=== PATIENT | female | born 1980 | race Two or more races ===

== ENCOUNTER 2020-11-02 11:13 | Emergency (ER) | payer OTHER, SELFPAY ==
[2020-11-02 11:38] VITALS: BP 122/57; PULSE 80; RESP 16; TEMP 36.8; O2SAT 99; BMI 39.6
[2020-11-02 12:20] LABS: Glucose Urine UA NEG (NEG); Leukocyte Esterase Urine NEG (NEG); Nitrite Urine NEG (NEG); PH 5.5 (5.0-8.0); Specific Gravity - Urine >= 1.030 (1.005-1.025); Urine Blood NEG (NEG); Urine Ketones NEG (NEG); Urine Protein NEG (NEG-TRACE)
[2020-11-02 12:22] LABS: MANUAL DIFF FLAG NO
[2020-11-02 12:24] LABS: Basophils Absolute Auto 0.1 X10*3/uL (0.0-0.2); Basophils Percent Auto 0.8 % (0-2); Eosinophils Absolute Auto 0.2 X10*3/uL (0.0-0.4); Eosinophils Percent Auto 2.9 % (0-4); Hematocrit 33.8 % (37-47); Hemoglobin 10.1 g/dl (12.0-16.0); Imm Gran Abs Auto 0.03 X10*3/uL (0.00-0.03); Imm Gran Pct Auto 0.5 % (0.0-0.4); Lymphocytes Absolute Auto 2.2 X10*3/uL (1.2-4.9); Lymphocytes Percent Auto 33.7 % (20-40); Mean Corpuscular HGB Conc 29.9 g/dl (31.0-35.0); Mean Corpuscular Hemoglobin 22.4 pg (27.0-33.0); Mean Corpuscular Volume 75.1 fL (80-98); Monocytes Absolute Auto 0.6 X10*3/uL (0.1-1.2); Monocytes Percent Auto 8.3 % (2-11); Neutrophils Absolute Auto 3.6 X10*3/uL (2.0-8.3); Neutrophils Percent Auto 53.8 % (45-73); Platelet Count 538 X10*3/uL (160-400); Red Cell Distribution Width 15.2 % (11.0-16.0); White Blood Count 6.6 X10*3/uL (4.8-10.8)
[2020-11-02 12:24] LABS: Appearance Urine HAZY; Color Urine YELLOW; UPreg QC Valid YES; Urine Pregnancy NEGATIVE (NEGATIVE)
[2020-11-02 12:42] LABS: Anion Gap 12 (12-20); Blood Urea Nitrogen 7 mg/dL (9-16); Carbon Dioxide 25 mmol/L (22-29); Chloride 105 mmol/L (96-108); Creatinine Clr Calc Pharmacy 105.1; Estimated Glomerular Filt Rate > 60; Glucose Random 87 mg/dL (60-115); Potassium 4.3 mmol/L (3.3-5.1); Sodium 138 mmol/L (135-145)
--- NOTE | 2020-11-02 13:01 | ED.GENADULT ---
HPI - General Adult General Chief complaint: General Medical Stated complaint: BLOOD IN STOOLS Time Seen by Provider: 11/02/20 12:59 Related Data Allergies Allergy/AdvReac Type Severity Reaction Status Date / Time No Known Allergies Allergy Verified 11/02/20 11:42 [No Known Allergies*] [facility]LY [facility] Past Medical History Medical History (Updated 11/02/20 @ 11:41 by Christine Meadows) Hemorrhoid Hernia Surgical History (Updated 11/02/20 @ 11:41 by Christine Meadows) H/O tubal ligation Social History Social History Advance Directives: No Advance Directives Information Provided: No Physical Exam Vital Signs: Vital Signs: Last Vital Signs Temp 98.2 F 11/02/20 11:38 Pulse 80 11/02/20 11:38 Resp 16 11/02/20 11:38 BP 122/57 L 11/02/20 11:38 Pulse Ox 99 11/02/20 11:38 Body Mass Index 39.6 Medical Decision Making Lab Data Result diagrams: 11/02/20 12:18 11/02/20 12:18 Labs: Lab Results 11/02/20 11/02/20 11/02/20 Range/Units 11:59 11:59 12:18 WBC 6.6 (4.8-10.8) X10*3/uL RBC 4.50 (4.20-5.50) X10*6/uL Hgb 10.1 L (12.0-16.0) g/dl Hct 33.8 L (37-47) % MCV 75.1 L (80-98) fL MCH 22.4 L (27.0-33.0) pg MCHC 29.9 L (31.0-35.0) g/dl RDW 15.2 (11.0-16.0) % Plt Count 538 H (160-400) X10*3/uL MPV 9.0 L (9.4-12.3) fL Immature Gran % (Auto) 0.5 H (0.0-0.4) % Neut % (Auto) 53.8 (45-73) % Lymph % (Auto) 33.7 (20-40) % [place] % (Auto) 8.3 (2-11) % Eos % (Auto) 2.9 (0-4) % Baso % (Auto) 0.8 (0-2) % Lymph # (Auto) 2.2 (1.2-4.9) X10*3/uL [place] # (Auto) 0.6 (0.1-1.2) X10*3/uL Eos # (Auto) 0.2 (0.0-0.4) X10*3/uL Baso # (Auto) 0.1 (0.0-0.2) X10*3/uL Abs Immat Gran (auto) 0.03 (0.00-0.03) X10*3/uL Absolute Neuts (auto) 3.6 (2.0-8.3) X10*3/uL Absolute Nucleated RBC 0.000 (0.0-0.012) X10*3/uL Nucleated RBC % (auto) 0.0 (0.0-0.2) /100WBC Hold Blue Top Sodium (135-145) mmol/L Potassium (3.3-5.1) mmol/L Chloride (96-108) mmol/L Carbon Dioxide (22-29) mmol/L Anion Gap (12-20) BUN (9-16) mg/dL Creatinine (0.5-1.4) mg/dL Estim Creat Clear Calc Estimated GFR Random Glucose (60-115) mg/dL Calcium (8.4-10.2) mg/dL Urine Color YELLOW Urine Appearance HAZY Urine pH 5.5 (5.0-8.0) Ur Specific [place] >= 1.030 H (1.005-1.025) Urine Protein NEG (NEG-TRACE) MG/DL Urine Glucose (UA) NEG (NEG) MG/DL Urine Ketones NEG (NEG) MG/DL Urine Blood NEG (NEG) Urine Nitrite NEG (NEG) Ur Leukocyte Esterase NEG (NEG) Urine Test NEGATIVE (NEGATIVE) 11/02/20 11/02/20 Range/Units 12:18 12:18 WBC (4.8-10.8) X10*3/uL RBC (4.20-5.50) X10*6/uL Hgb (12.0-16.0) g/dl Hct (37-47) % MCV (80-98) fL MCH (27.0-33.0) pg MCHC (31.0-35.0) g/dl RDW (11.0-16.0) % Plt Count (160-400) X10*3/uL MPV (9.4-12.3) fL Immature Gran % (Auto) (0.0-0.4) % Neut % (Auto) (45-73) % Lymph % (Auto) (20-40) % [place] % (Auto) (2-11) % Eos % (Auto) (0-4) % Baso % (Auto) (0-2) % Lymph # (Auto) (1.2-4.9) X10*3/uL [place] # (Auto) (0.1-1.2) X10*3/uL Eos # (Auto) (0.0-0.4) X10*3/uL Baso # (Auto) (0.0-0.2) X10*3/uL Abs Immat Gran (auto) (0.00-0.03) X10*3/uL Absolute Neuts (auto) (2.0-8.3) X10*3/uL Absolute Nucleated RBC (0.0-0.012) X10*3/uL Nucleated RBC % (auto) (0.0-0.2) /100WBC Hold Blue Top SEE NOTE Sodium 138 (135-145) mmol/L Potassium 4.3 (3.3-5.1) mmol/L Chloride 105 (96-108) mmol/L Carbon Dioxide 25 (22-29) mmol/L Anion Gap 12 (12-20) BUN 7 L (9-16) mg/dL Creatinine 0.69 (0.5-1.4) mg/dL Estim Creat Clear Calc 105.1 Estimated GFR > 60 Random Glucose 87 (60-115) mg/dL Calcium 9.0 (8.4-10.2) mg/dL Urine Color Urine Appearance Urine pH (5.0-8.0) Ur Specific [place] (1.005-1.025) Urine Protein (NEG-TRACE) MG/DL Urine Glucose (UA) (NEG) MG/DL Urine Ketones (NEG) MG/DL Urine Blood (NEG) Urine Nitrite (NEG) Ur Leukocyte Esterase (NEG) Urine Test (NEGATIVE)
--- NOTE | 2020-11-02 16:01 | PC.NURSE ---
x2 call now, no answer.
== END 2020-11-02 16:01 | disposition left against medical advice (07) ==
PROVIDERS: Emergency Provider Emergency Medicine
DX: K92.1 Melena (principal)
CPT/HCPCS: 36415; 80048; 81003; 81025; 85025; 99282; 99283

== ENCOUNTER 2021-05-26 19:13 | Emergency (ER) | payer OTHER, SELFPAY ==
[2021-05-26 20:27] VITALS: BP 113/82; PULSE 107; RESP 16; TEMP 36.9; O2SAT 98; BMI 38.5
[2021-05-26 20:53] LABS: IDNOW Serial# 9DD0AD1C; Strep A Nucleic Acid Negative (Negative)
[2021-05-26 20:59] LABS: COVID-19 Test Negative (Negative)
[2021-05-26 21:06] LABS: MANUAL DIFF FLAG NO
[2021-05-26 21:08] LABS: Appearance Urine HAZY; Color Urine YELLOW; Glucose Urine UA NEG (NEG); Leukocyte Esterase Urine NEG (NEG); Nitrite Urine NEG (NEG); Specific Gravity - Urine >= 1.030 (1.005-1.025); UACC Culture Trigger NO; Urine Blood TRACE (NEG); Urine Ketones 5 MG/DL (NEG); Urine Protein TRACE MG/DL (NEG-TRACE)
[2021-05-26 21:13] LABS: Basophils Percent Auto 0.4 % (0-2); Eosinophils Absolute Auto 0.1 X10*3/uL (0.0-0.4); Eosinophils Percent Auto 1.4 % (0-4); Hematocrit 34.9 % (37-47); Hemoglobin 10.5 g/dl (12.0-16.0); Imm Gran Abs Auto 0.02 X10*3/uL (0.00-0.03); Imm Gran Pct Auto 0.2 % (0.0-0.4); Lymphocytes Absolute Auto 1.8 X10*3/uL (1.2-4.9); Lymphocytes Percent Auto 18.8 % (20-40); Mean Corpuscular HGB Conc 30.1 g/dl (31.0-35.0); Mean Corpuscular Hemoglobin 21.4 pg (27.0-33.0); Mean Corpuscular Volume 71.1 fL (80-98); Mean Platelet Volume 9.2 fL (9.4-12.3); Monocytes Absolute Auto 0.7 X10*3/uL (0.1-1.2); Monocytes Percent Auto 7.5 % (2-11); Neutrophils Absolute Auto 6.9 X10*3/uL (2.0-8.3); Neutrophils Percent Auto 71.7 % (45-73); Platelet Count 658 X10*3/uL (160-400); Red Blood Count 4.91 X10*6/uL (4.20-5.50); Red Cell Distribution Width 16.7 % (11.0-16.0); White Blood Count 9.6 X10*3/uL (4.8-10.8)
[2021-05-26 21:18] LABS: Bacteria Urine 1+ /LPF; Squamous Epithelial Cell Urine 1+ /LPF
[2021-05-26 21:19] LABS: RBC Urine 0-2 /HPF (0); WBC Urine 0 /HPF (0-4)
[2021-05-26 21:22] LABS: Alanine Aminotransferase 11 U/L (0-31); Albumin Level 4.6 g/dL (3.5-5.0); Alkaline Phosphatase 74 U/L (39-117); Anion Gap 15 (12-20); Aspartate Amino Transferase 13 U/L (5-31); Bilirubin Direct 0.3 mg/dL (0.0-0.5); Bilirubin Total 1.1 mg/dL (0.0-1.0); Blood Urea Nitrogen 10 mg/dL (9-16); Calcium 10.3 mg/dL (8.4-10.2); Carbon Dioxide 25 mmol/L (22-29); Chloride 104 mmol/L (96-108); Creatinine Clr Calc Pharmacy 97.9; Estimated Glomerular Filt Rate > 60; Glucose Random 88 mg/dL (60-115); Lipase 20 U/L (8-78); Potassium 4.2 mmol/L (3.3-5.1); Sodium 140 mmol/L (135-145)
--- NOTE | 2021-05-26 21:30 | ED.NAVMDI ---
HPI - Nausea/Vomiting/Diarrhea General Chief complaint: Nausea/Vomiting/Diarrhea Stated complaint: vomitting, diarrhea Time Seen by Provider: 05/26/21 21:30 Source: patient Mode of arrival: ambulatory Limitations: no limitations History of Present Illness HPI Narrative: Patient with and nauseated vomiting with diarrhea since morning today vomited about 7-8 no fever no chills times and had diarrhea more than 10 times whenever she eats anything she throws up and had a bowel movement. With diffuse abdominal cramps. Patient grandson was also sick, patient also complaining of sore throat after vomiting Related Data Previous Rx's Medication Instructions Recorded ondansetron 4 mg disintegrating 4 mg PO Q6-8H PRN #7 tab 05/26/21 tablet Allergies Allergy/AdvReac Type Severity Reaction Status Date / Time No Known Allergies Allergy Verified 05/26/21 20:27 [No Known Allergies*] Review of Systems Review of Systems: Yes all other systems are reviewed and are negative PMFSH Past Medical History Medical History Hemorrhoid Hernia Surgical History H/O tubal ligation Social History Social History Alcohol intake: former Patient Tobacco Use Status: Never used Tobacco Use of substances other than those prescribed or required for medical reasons: No Advance Directives: No Advance Directives Information Provided: No Physical Exam Vital Signs: Vital Signs: Last Vital Signs Temp 97.9 F 05/26/21 23:30 Pulse 73 05/26/21 23:49 Resp 15 05/26/21 23:49 BP 113/68 05/26/21 23:49 Pulse Ox 98 05/26/21 23:49 Body Mass Index 38.5 Appearance: Alert. Oriented X3. No acute distress. Eyes: No pallor or icterus ENT: Pharynx normal. Oral Mucosa moist Neck: Normal inspection. Neck supple. CVS: Normal heart rate and rhythm. Pulses normal. Respiratory: No respiratory distress. Equal air entry bilateral, no wheezing/rales/rhonchi Abdomen: Soft and nontender. Bowel sounds are present, no mass palpable, no CVA tenderness Skin: Skin warm and dry. Normal skin color. Normal skin turgor. Extremities: No lower extremity edema. No calf tenderness Neuro: Oriented X 3. MDM - Nausea/Vomiting/Diarrhea Lab Data Result diagrams: 05/26/21 20:47 05/26/21 20:47 Labs: Lab Results 05/26/21 05/26/21 05/26/21 Range/Units 20:36 20:36 20:47 WBC 9.6 (4.8-10.8) X10*3/uL RBC 4.91 (4.20-5.50) X10*6/uL Hgb 10.5 L (12.0-16.0) g/dl Hct 34.9 L (37-47) % MCV 71.1 L (80-98) fL MCH 21.4 L (27.0-33.0) pg MCHC 30.1 L (31.0-35.0) g/dl RDW 16.7 H (11.0-16.0) % Plt Count 658 H (160-400) X10*3/uL MPV 9.2 L (9.4-12.3) fL Immature Gran % (Auto) 0.2 (0.0-0.4) % Neut % (Auto) 71.7 (45-73) % Lymph % (Auto) 18.8 L (20-40) % [place] % (Auto) 7.5 (2-11) % Eos % (Auto) 1.4 (0-4) % Baso % (Auto) 0.4 (0-2) % Lymph # (Auto) 1.8 (1.2-4.9) X10*3/uL [place] # (Auto) 0.7 (0.1-1.2) X10*3/uL Eos # (Auto) 0.1 (0.0-0.4) X10*3/uL Baso # (Auto) 0.0 (0.0-0.2) X10*3/uL Abs Immat Gran (auto) 0.02 (0.00-0.03) X10*3/uL Absolute Neuts (auto) 6.9 (2.0-8.3) X10*3/uL Absolute Nucleated RBC 0.000 (0.0-0.012) X10*3/uL Nucleated RBC % (auto) 0.0 (0.0-0.2) /100WBC Sodium (135-145) mmol/L Potassium (3.3-5.1) mmol/L Chloride (96-108) mmol/L Carbon Dioxide (22-29) mmol/L Anion Gap (12-20) BUN (9-16) mg/dL Creatinine (0.5-1.4) mg/dL Estim Creat Clear Calc Estimated GFR Random Glucose (60-115) mg/dL Calcium (8.4-10.2) mg/dL Total Bilirubin (0.0-1.0) mg/dL Direct Bilirubin (0.0-0.5) mg/dL AST (5-31) U/L ALT (0-31) U/L Alkaline Phosphatase (39-117) U/L Total Protein (6.5-8.0) g/dL Albumin (3.5-5.0) g/dL Lipase (8-78) U/L Urine Color Urine Appearance Urine pH (5.0-8.0) Ur Specific [place] (1.005-1.025) Urine Protein (NEG-TRACE) MG/DL Urine Glucose (UA) (NEG) MG/DL Urine Ketones (NEG) MG/DL Urine Blood (NEG) Urine Nitrite (NEG) Ur Leukocyte Esterase (NEG) Urine RBC (0) /HPF Urine WBC (0-4) /HPF Ur Squamous Epith Cells /LPF Urine Bacteria /LPF COVID-19 ([place]) Negative (Negative) COVID-19 Clin Com See Note S. pyogenes GrpA HAYLEY Negative (Negative) 05/26/21 05/26/21 Range/Units 20:47 20:50 WBC (4.8-10.8) X10*3/uL RBC (4.20-5.50) X10*6/uL Hgb (12.0-16.0) g/dl Hct (37-47) % MCV (80-98) fL MCH (27.0-33.0) pg MCHC (31.0-35.0) g/dl RDW (11.0-16.0) % Plt Count (160-400) X10*3/uL MPV (9.4-12.3) fL Immature Gran % (Auto) (0.0-0.4) % Neut % (Auto) (45-73) % Lymph % (Auto) (20-40) % [place] % (Auto) (2-11) % Eos % (Auto) (0-4) % Baso % (Auto) (0-2) % Lymph # (Auto) (1.2-4.9) X10*3/uL [place] # (Auto) (0.1-1.2) X10*3/uL Eos # (Auto) (0.0-0.4) X10*3/uL Baso # (Auto) (0.0-0.2) X10*3/uL Abs Immat Gran (auto) (0.00-0.03) X10*3/uL Absolute Neuts (auto) (2.0-8.3) X10*3/uL Absolute Nucleated RBC (0.0-0.012) X10*3/uL Nucleated RBC % (auto) (0.0-0.2) /100WBC Sodium 140 (135-145) mmol/L Potassium 4.2 (3.3-5.1) mmol/L Chloride 104 (96-108) mmol/L Carbon Dioxide 25 (22-29) mmol/L Anion Gap 15 (12-20) BUN 10 (9-16) mg/dL Creatinine 0.73 (0.5-1.4) mg/dL Estim Creat Clear Calc 97.9 Estimated GFR > 60 Random Glucose 88 (60-115) mg/dL Calcium 10.3 H D (8.4-10.2) mg/dL Total Bilirubin 1.1 H (0.0-1.0) mg/dL Direct Bilirubin 0.3 (0.0-0.5) mg/dL AST 13 (5-31) U/L ALT 11 (0-31) U/L Alkaline Phosphatase 74 (39-117) U/L Total Protein 8.0 (6.5-8.0) g/dL Albumin 4.6 (3.5-5.0) g/dL Lipase 20 (8-78) U/L Urine Color YELLOW Urine Appearance HAZY Urine pH 6.0 (5.0-8.0) Ur Specific [place] >= 1.030 H (1.005-1.025) Urine Protein TRACE (NEG-TRACE) MG/DL Urine Glucose (UA) NEG (NEG) MG/DL Urine Ketones 5 (NEG) MG/DL Urine Blood TRACE (NEG) Urine Nitrite NEG (NEG) Ur Leukocyte Esterase NEG (NEG) Urine RBC 0-2 (0) /HPF Urine WBC 0 (0-4) /HPF Ur Squamous Epith Cells 1+ /LPF Urine Bacteria 1+ /LPF COVID-19 ([place]) (Negative) COVID-19 Clin Com S. pyogenes GrpA HAYLEY (Negative) Discharge Plan Discharge Clinical Impression: Gastroenteritis Patient Disposition: Home, Self-Care Instructions: Gastroenteritis (ED) Additional Instructions: Drink plenty of fluids Take medication for nausea Take Imodium for severe diarrhea not more than 3 tablets a day Prescriptions: New ondansetron 4 mg tablet,disintegrating 4 mg PO Q6-8H PRN (Reason: nausea and vomiting) Qty: 7 RF: 0
[2021-05-26 21:31] VITALS: BP 110/70; PULSE 93; RESP 15; TEMP 36.7; O2SAT 98
[2021-05-26] MEDS: ondansetron HCL 4 MG/2 ML VIAL IVPUSH ×2 (22:19→23:49)
[2021-05-26] MEDS: 0.9 % Sodium Chloride 1,000 ML 999 ML IVCONT (22:19)
[2021-05-26] MEDS: Loperamide HCl 2 MG CAPSULE 4 MG PO (22:19)
[2021-05-26 23:30] VITALS: BP 113/68; PULSE 78; RESP 18; TEMP 36.6; O2SAT 98
[2021-05-26 23:49] VITALS: BP 113/68; PULSE 73; RESP 15; O2SAT 98
[2021-05-26] MEDS: Dicyclomine HCl 10 MG CAPSULE 20 MG PO (23:49)
== END 2021-05-27 00:30 | disposition home or self-care (01) ==
PROVIDERS: Emergency Provider Internal Medicine
DX: K52.9 Noninfective gastroenteritis and colitis, unspecified (principal); J02.9 Acute pharyngitis, unspecified; R11.2 Nausea with vomiting, unspecified; Z20.822 Contact with and (suspected) exposure to COVID-19
CPT/HCPCS: 36415; 80048; 80076; 81001; 83690; 85025; 87635; 87651; 96361; 96374; 96376; 99284; J2405

== ENCOUNTER 2021-10-11 07:01 | Emergency (ER) | payer OTHER, SELFPAY ==
--- NOTE | ~2021-10-11 | XR_ITS ---
EXAMINATION: XR CHEST CLINICAL INFORMATION: Chest pain and cough COMPARISON: 11/01/2018 TECHNIQUE: Frontal view of the chest was obtained. FINDINGS: Lung volumes are symmetric. No focal consolidation is seen. No evidence of pneumothorax, pleural effusion, or pulmonary edema. The cardiomediastinal contour is unremarkable. No acute osseous findings are seen. XR/XR chest 1V IMPRESSION: No acute cardiopulmonary findings.
[2021-10-11 07:09] VITALS: BP 123/76; PULSE 106; RESP 18; TEMP 37.4; O2SAT 97; BMI 37.8
[2021-10-11 07:16] VITALS: BP 114/75; PULSE 103; RESP 18; TEMP 37.6; O2SAT 97
--- NOTE | 2021-10-11 07:29 | ECG_ITS ---
Test Reason : CP Blood Pressure : / mmHG Vent. Rate : 096 BPM Atrial Rate : 096 BPM P-R Int : 174 ms QRS Dur : 072 ms QT Int : 358 ms P-R-T Axes : 021 004 000 degrees QTc Int : 452 ms Normal sinus rhythm Cannot rule out Anterior infarct , age undetermined Abnormal ECG When compared with ECG of 01-NOV-2018 20:41, No significant change was found Referred By: Shelli Rodriguez Electronically Signed By:IRMA VARGAS MD
--- NOTE | 2021-10-11 07:31 | ED_ITS ---
HPI - URI/Sore Throat General Chief Complaint: Upper Respiratory Symptoms Stated Complaint: chest pains/throat pain/body aches Time Seen by Provider: 10/11/21 07:29 Source: patient Mode of arrival: ambulatory Limitations: no limitations History of Present Illness HPI Narrative: 41-year-old female came in for evaluation of sore throat and chest pain. Patient's symptoms a starts since this morning with sore throat, coughing, chest pain, no other sick contacts, no recent travel, patient is not vaccinated for COVID. Chest pain is constant associated with coughing without radiation pain is not exertional. No recent travel, no lower extremity swelling or tenderness. Related Data Previous Rx's Medication Instructions Recorded ondansetron 4 mg disintegrating 4 mg PO Q6-8H PRN #7 tab 05/26/21 tablet Allergies Allergy/AdvReac Type Severity Reaction Status Date / Time No Known Allergies Allergy Verified 05/26/21 20:27 [No Known Allergies*] Review of Systems Review of Systems: All other systems are reviewed and are negative Constitutional: Reports as per HPI and Reports no additional constitutional complaints Eyes: Reports as per HPI and Reports no additional eye complaints Reports system reviewed and no additional complaints, except as documented Cardiovascular: Reports as per HPI and Reports no additional cardiovascular complaints Respiratory: Reports as per HPI and Reports no additional respiratory complaints Gastrointestinal: Reports as per HPI and Reports no additional gastrointestinal complaints Genitourinary: Reports no additional female genitourinary complaints Musculoskeletal: Reports no additional musculoskeletal complaints Skin/Breast: Reports system reviewed and no additional complaints, except as docu Psychiatric: Reports no additional psychiatric complaints Endocrine: Reports no additional endocrine complaints Hematologic/Lymphatic: Reports no additional hematologic/lymphatic complaints Allergic/Immunologic: Reports no additional allergic/immunologic complaints Reports system reviewed and no additional complaints, except as documented and Reports Abnormal speech present [facility] Past Medical History Medical History Hemorrhoid Hernia Surgical History H/O tubal ligation Social History Social History Alcohol intake: never Patient Tobacco Use Status: Never used Tobacco Use of substances other than those prescribed or required for medical reasons: No Advance Directives: No Advance Directives Information Provided: No Patient : No Physical Exam Vital Signs: Vital Signs: Last Vital Signs Temp 99.7 F 10/11/21 07:16 Pulse 103 H 10/11/21 07:16 Resp 18 10/11/21 07:16 BP 114/75 10/11/21 07:16 Pulse Ox 97 10/11/21 07:16 BMI result Body Mass Index 37.8 Vital signs have been reviewed as appeared to be correct. Blood pressure normal. Heart rate elevated. Respiration rate normal. Temperature normal. Oxygen saturation normal. Appearance: Alert. Oriented X3. No acute distress. Head: Normal external exam. Normocephalic. Atraumatic. No Ferraro signs noted. No raccoon eyes noted Eyes: PERRLA. EOMI. Conjunctiva and sclera normal. Eyelids normal. ENT: TM's Normal. Pharynx normal. Uvula midline. Moist mucous membranes. No trismus noted. No drooling noted. No muffled voice noted. Neck: Normal inspection. Neck supple. FROM. No adenopathy. Thyroid Normal. No meningeal signs. No neck mass noted. CVS: Normal heart rate and rhythm. Heart sound normal. No murmurs noted. Pulses normal throughout. Respiratory: No respiratory distress. Painless inspiration. Breath sounds normal. No wheezes/rales/rhonchi noted. Chest nontender. No accessory muscle usage noted or decreased air movement noted. Abdomen: Soft and nontender. Bowel sounds normal in all 4 quadrants. No distention noted. No organomegaly noted. No visible injury noted. Back: No CVA tenderness. Full range of motion noted. Skin: Skin warm and dry. Normal skin color. Normal skin turgor. No rashes/lesions/lacerations noted. Extremities: No lower extremity edema. Extremities exhibit normal range of motion. Extremities nontender. Neuro: Oriented X 3. Cranial nerve exam: II-XII are grossly intact No motor deficit. No sensory deficit. Reflexes normal. Course Course Course Narrative: Assessment and plan. 41-year-old female came in with chest pain and throat pain, patient tested negative for rapid strep and also negative for flu/RSV/COVID infection, patient has unremarkable EKG with troponin x2 negative. HEART score is 1 with very low risk for cardiac disease. Will discharge the patient after reassurance to follow-up with her PCP. MDM - URI/Sore Throat Lab Data Attestation: I reviewed the patient's lab results. Result diagrams: 10/11/21 07:54 10/11/21 07:54 Labs: Lab Results 10/11/21 10/11/21 10/11/21 Range/Units 07:54 07:54 07:54 WBC 12.3 H (4.8-10.8) X10*3/uL RBC 4.44 (4.20-5.50) X10*6/uL Hgb 9.5 L (12.0-16.0) g/dl Hct 32.4 L (37.0-47.0) % MCV 73.0 L (80.0-98.0) fL MCH 21.4 L (27.0-33.0) pg MCHC 29.3 L (31.0-35.0) g/dl RDW 20.4 H (11.0-16.0) % Plt Count 554 H (160-400) X10*3/uL MPV 9.6 (9.4-12.3) fL Immature Gran % (Auto) 0.4 (0.0-0.4) % Neut % (Auto) 79.3 H (45-73) % Lymph % (Auto) 11.6 L (20-40) % [place] % (Auto) 7.7 (2-11) % Eos % (Auto) 0.6 (0-4) % Baso % (Auto) 0.4 (0-2) % Lymph # (Auto) 1.4 (1.2-4.9) X10*3/uL [place] # (Auto) 1.0 (0.1-1.2) X10*3/uL Eos # (Auto) 0.1 (0.0-0.4) X10*3/uL Baso # (Auto) 0.1 (0.0-0.2) X10*3/uL Abs Immat Gran (auto) 0.05 H (0.00-0.03) X10*3/uL Absolute Neuts (auto) 9.7 H (2.0-8.3) x10*3/uL Absolute Nucleated RBC 0.000 (0.0-0.012) X10*3/uL Nucleated RBC % (auto) 0.0 (0.0-0.2) /100WBC Sodium 138 (135-145) mmol/L Potassium 4.1 (3.3-5.1) mmol/L Chloride 106 (96-108) mmol/L Carbon Dioxide 22 (22-29) mmol/L Anion Gap 14 (12-20) BUN 7 L (9-16) mg/dL Creatinine 0.68 (0.5-1.4) mg/dL Estim Creat Clear Calc 102.9 Estimated GFR > 60 Random Glucose 96 (60-115) mg/dL Calcium 9.2 D (8.4-10.2) mg/dL Total Bilirubin 0.6 (0.0-1.0) mg/dL Direct Bilirubin 0.2 (0.0-0.5) mg/dL AST 15 (5-31) U/L ALT 13 (0-31) U/L Alkaline Phosphatase 64 (39-117) U/L Troponin I High Sens < 3.5 (<3.5-17.0) ng/L Total Protein 6.6 (6.5-8.0) g/dL Albumin 3.8 (3.5-5.0) g/dL Lipase 24 (8-78) U/L Urine Color Urine Appearance Urine pH (5.0-8.0) Ur Specific [place] (1.005-1.025) Urine Protein (NEG-TRACE) MG/DL Urine Glucose (UA) (NEG) MG/DL Urine Ketones (NEG) MG/DL Urine Blood (NEG) Urine Nitrite (NEG) Ur Leukocyte Esterase (NEG) Urine Test (NEGATIVE) Influenza Type A (PCR) (Negative) Influenza Type B (PCR) (Negative) RSV RNA Qual (PCR) (Negative) SARS-CoV-2 RNA (RT-PCR) (Negative) S. pyogenes GrpA HAYLEY (Negative) 10/11/21 10/11/21 10/11/21 Range/Units 07:54 07:54 09:50 WBC (4.8-10.8) X10*3/uL RBC (4.20-5.50) X10*6/uL Hgb (12.0-16.0) g/dl Hct (37.0-47.0) % MCV (80.0-98.0) fL MCH (27.0-33.0) pg MCHC (31.0-35.0) g/dl RDW (11.0-16.0) % Plt Count (160-400) X10*3/uL MPV (9.4-12.3) fL Immature Gran % (Auto) (0.0-0.4) % Neut % (Auto) (45-73) % Lymph % (Auto) (20-40) % [place] % (Auto) (2-11) % Eos % (Auto) (0-4) % Baso % (Auto) (0-2) % Lymph # (Auto) (1.2-4.9) X10*3/uL [place] # (Auto) (0.1-1.2) X10*3/uL Eos # (Auto) (0.0-0.4) X10*3/uL Baso # (Auto) (0.0-0.2) X10*3/uL Abs Immat Gran (auto) (0.00-0.03) X10*3/uL Absolute Neuts (auto) (2.0-8.3) x10*3/uL Absolute Nucleated RBC (0.0-0.012) X10*3/uL Nucleated RBC % (auto) (0.0-0.2) /100WBC Sodium (135-145) mmol/L Potassium (3.3-5.1) mmol/L Chloride (96-108) mmol/L Carbon Dioxide (22-29) mmol/L Anion Gap (12-20) BUN (9-16) mg/dL Creatinine (0.5-1.4) mg/dL Estim Creat Clear Calc Estimated GFR Random Glucose (60-115) mg/dL Calcium (8.4-10.2) mg/dL Total Bilirubin (0.0-1.0) mg/dL Direct Bilirubin (0.0-0.5) mg/dL AST (5-31) U/L ALT (0-31) U/L Alkaline Phosphatase (39-117) U/L Troponin I High Sens < 3.5 (<3.5-17.0) ng/L Total Protein (6.5-8.0) g/dL Albumin (3.5-5.0) g/dL Lipase (8-78) U/L Urine Color Urine Appearance Urine pH (5.0-8.0) Ur Specific [place] (1.005-1.025) Urine Protein (NEG-TRACE) MG/DL Urine Glucose (UA) (NEG) MG/DL Urine Ketones (NEG) MG/DL Urine Blood (NEG) Urine Nitrite (NEG) Ur Leukocyte Esterase (NEG) Urine Test (NEGATIVE) Influenza Type A (PCR) NEGATIVE (Negative) Influenza Type B (PCR) NEGATIVE (Negative) RSV RNA Qual (PCR) NEGATIVE (Negative) SARS-CoV-2 RNA (RT-PCR) NEGATIVE (Negative) S. pyogenes GrpA HAYLEY Negative (Negative) 10/11/21 10/11/21 Range/Units 09:52 09:52 WBC (4.8-10.8) X10*3/uL RBC (4.20-5.50) X10*6/uL Hgb (12.0-16.0) g/dl Hct (37.0-47.0) % MCV (80.0-98.0) fL MCH (27.0-33.0) pg MCHC (31.0-35.0) g/dl RDW (11.0-16.0) % Plt Count (160-400) X10*3/uL MPV (9.4-12.3) fL Immature Gran % (Auto) (0.0-0.4) % Neut % (Auto) (45-73) % Lymph % (Auto) (20-40) % [place] % (Auto) (2-11) % Eos % (Auto) (0-4) % Baso % (Auto) (0-2) % Lymph # (Auto) (1.2-4.9) X10*3/uL [place] # (Auto) (0.1-1.2) X10*3/uL Eos # (Auto) (0.0-0.4) X10*3/uL Baso # (Auto) (0.0-0.2) X10*3/uL Abs Immat Gran (auto) (0.00-0.03) X10*3/uL Absolute Neuts (auto) (2.0-8.3) x10*3/uL Absolute Nucleated RBC (0.0-0.012) X10*3/uL Nucleated RBC % (auto) (0.0-0.2) /100WBC Sodium (135-145) mmol/L Potassium (3.3-5.1) mmol/L Chloride (96-108) mmol/L Carbon Dioxide (22-29) mmol/L Anion Gap (12-20) BUN (9-16) mg/dL Creatinine (0.5-1.4) mg/dL Estim Creat Clear Calc Estimated GFR Random Glucose (60-115) mg/dL Calcium (8.4-10.2) mg/dL Total Bilirubin (0.0-1.0) mg/dL Direct Bilirubin (0.0-0.5) mg/dL AST (5-31) U/L ALT (0-31) U/L Alkaline Phosphatase (39-117) U/L Troponin I High Sens (<3.5-17.0) ng/L Total Protein (6.5-8.0) g/dL Albumin (3.5-5.0) g/dL Lipase (8-78) U/L Urine Color YELLOW Urine Appearance CLEAR Urine pH 6.0 (5.0-8.0) Ur Specific [place] >= 1.030 H (1.005-1.025) Urine Protein NEG (NEG-TRACE) MG/DL Urine Glucose (UA) NEG (NEG) MG/DL Urine Ketones NEG (NEG) MG/DL Urine Blood NEG (NEG) Urine Nitrite NEG (NEG) Ur Leukocyte Esterase NEG (NEG) Urine Test NEGATIVE (NEGATIVE) Influenza Type A (PCR) (Negative) Influenza Type B (PCR) (Negative) RSV RNA Qual (PCR) (Negative) SARS-CoV-2 RNA (RT-PCR) (Negative) S. pyogenes GrpA HAYLEY (Negative) Imaging Data Chest x-ray: Attestation: I personally reviewed and interpreted this imaging study as follows: Radiologist's impression: No acute cardiopulmonary findings ECG Data Attestation: I personally reviewed and interpreted this ECG as follows: Interpretation: Normal sinus rhythm at 96 beats per minute, normal axis deviation, normal intervals, nonspecific T-wave flattening and T-wave inversion. Discharge Plan Discharge Clinical Impression: Upper respiratory infection Patient Disposition: Home, Self-Care Instructions: Viral Syndrome (ED) Prescriptions: No Action ondansetron 4 mg tablet,disintegrating 4 mg PO Q6-8H PRN (Reason: nausea and vomiting) Qty: 7 0RF Referrals: Magdalena Padgett MD [Primary Care Provider] - 2 days
[2021-10-11 08:00] LABS: MANUAL DIFF FLAG NO
[2021-10-11 08:13] LABS: Strep A Nucleic Acid Negative (Negative)
[2021-10-11 08:20] LABS: Troponin-I High Sensitivity < 3.5 ng/L (<3.5-17.0)
[2021-10-11 08:24] LABS: Alanine Aminotransferase 13 U/L (0-31); Albumin Level 3.8 g/dL (3.5-5.0); Alkaline Phosphatase 64 U/L (39-117); Anion Gap 14 (12-20); Aspartate Amino Transferase 15 U/L (5-31); Bilirubin Direct 0.2 mg/dL (0.0-0.5); Bilirubin Total 0.6 mg/dL (0.0-1.0); Blood Urea Nitrogen 7 mg/dL (9-16); Calcium 9.2 mg/dL (8.4-10.2); Carbon Dioxide 22 mmol/L (22-29); Chloride 106 mmol/L (96-108); Creatinine Clr Calc Pharmacy 102.9; Estimated Glomerular Filt Rate > 60; Glucose Random 96 mg/dL (60-115); Lipase 24 U/L (8-78); Potassium 4.1 mmol/L (3.3-5.1); Sodium 138 mmol/L (135-145); Total Protein 6.6 g/dL (6.5-8.0)
[2021-10-11 08:45] LABS: Influenza A PCR NEGATIVE (Negative); Influenza B PCR NEGATIVE (Negative); Resp Syncy Virus RNA Qual PCR NEGATIVE (Negative); SARS COV2 PCR INHOUSE NEGATIVE (Negative)
[2021-10-11 08:57] LABS: Basophils Absolute Auto 0.1 X10*3/uL (0.0-0.2); Basophils Percent Auto 0.4 % (0-2); Eosinophils Absolute Auto 0.1 X10*3/uL (0.0-0.4); Eosinophils Percent Auto 0.6 % (0-4); Hematocrit 32.4 % (37.0-47.0); Hemoglobin 9.5 g/dl (12.0-16.0); Imm Gran Abs Auto 0.05 X10*3/uL (0.00-0.03); Imm Gran Pct Auto 0.4 % (0.0-0.4); Lymphocytes Absolute Auto 1.4 X10*3/uL (1.2-4.9); Lymphocytes Percent Auto 11.6 % (20-40); Mean Corpuscular HGB Conc 29.3 g/dl (31.0-35.0); Mean Corpuscular Hemoglobin 21.4 pg (27.0-33.0); Mean Platelet Volume 9.6 fL (9.4-12.3); Monocytes Percent Auto 7.7 % (2-11); Neutrophils Absolute Auto 9.7 x10*3/uL (2.0-8.3); Neutrophils Percent Auto 79.3 % (45-73); Platelet Count 554 X10*3/uL (160-400); Red Blood Count 4.44 X10*6/uL (4.20-5.50); Red Cell Distribution Width 20.4 % (11.0-16.0); White Blood Count 12.3 X10*3/uL (4.8-10.8)
[2021-10-11 10:16] LABS: Troponin-I High Sensitivity < 3.5 ng/L (<3.5-17.0)
[2021-10-11 10:27] LABS: Appearance Urine CLEAR; Color Urine YELLOW; Glucose Urine UA NEG (NEG); Leukocyte Esterase Urine NEG (NEG); Nitrite Urine NEG (NEG); Specific Gravity - Urine >= 1.030 (1.005-1.025); Urine Blood NEG (NEG); Urine Ketones NEG (NEG); Urine Protein NEG (NEG-TRACE)
[2021-10-11 10:28] LABS: UPreg QC Valid YES; Urine Pregnancy NEGATIVE (NEGATIVE)
== END 2021-10-11 11:14 | disposition home or self-care (01) ==
PROVIDERS: Emergency Provider Emergency Medicine; PCP Internal Medicine
DX: J06.9 Acute upper respiratory infection, unspecified (principal); R07.89 Other chest pain; M79.10 Myalgia, unspecified site; R07.0 Pain in throat; Z20.822 Contact with and (suspected) exposure to COVID-19; Z79.899 Other long term (current) drug therapy
CPT/HCPCS: 0241U; 36415; 71045; 80048; 80076; 81003; 81025; 83690; 84484; 85025; 87651; 93005; 99285

== ENCOUNTER 2022-07-13 17:20 | Emergency (ER) | payer OTHER, SELFPAY ==
--- NOTE | ~2022-07-13 | XR_ITS ---
EXAMINATION: XR CHEST CLINICAL INFORMATION: Shortness of breath. Cough. COMPARISON: Chest x-ray 10/11/2021 TECHNIQUE: 2 views of the chest were obtained. FINDINGS: No significant abnormality is noted involving the heart, lungs, mediastinum, bony thorax or soft tissues. XR/XR chest 2V IMPRESSION: Unremarkable examination.
[2022-07-13 18:35] VITALS: BP 111/71; PULSE 87; RESP 18; TEMP 36.8; O2SAT 97; BMI 35.9
--- NOTE | 2022-07-13 18:35 | ED.URI ---
HPI - URI/Sore Throat General Chief Complaint: Upper Respiratory Symptoms <URI Torres - Last Filed: 07/13/22 18:37> Stated Complaint: Cough <URI Torres - Last Filed: 07/13/22 18:37> Time Seen by Provider: 07/13/22 20:15 <URI Torres - Last Filed: 07/13/22 18:37> Source: patient <Shelli Rodriguez MD - Last Filed: 07/13/22 20:57> Mode of arrival: ambulatory <Shelli Rodriguez MD - Last Filed: 07/13/22 20:57> Limitations: no limitations <Shelli Rodriguez MD - Last Filed: 07/13/22 20:57> History of Present Illness HPI Narrative: 41-year-old female came in for evaluation of upper respiratory symptoms patient been having productive cough with clear sputum, runny nose, congestion, body ache, boyfriend who live with the patient was sick with similar symptoms. 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 <Shelli Rodriguez MD - Last Filed: 07/13/22 20:57> Related Data Home Medications: Previous Rx's Medication Instructions Recorded ondansetron 4 mg disintegrating 4 mg PO Q6-8H PRN nausea and 05/26/21 tablet vomiting #7 tabs albuterol sulfate 90 mcg/actuation 1 inh inhalation QID PRN shortness 07/13/22 aerosol inhaler of breath or wheezing #8.5 grams azithromycin 250 mg tablet See Rx Instructions PO .COMPLEX #6 07/13/22 (Zithromax Z-Samy) tabs prednisone 20 mg tablet 20 mg PO BID #10 tabs 07/13/22 <URI Torres - Last Filed: 07/13/22 18:37> Allergies/Adverse Reactions: Allergies Allergy/AdvReac Type Severity Reaction Status Date / Time No Known Allergies Allergy Verified 05/26/21 20:27 [No Known Allergies*] <URI Torres - Last Filed: 07/13/22 18:37> Review of Systems Review of Systems: All other systems are reviewed and are negative Constitutional: Reports as per HPI and Reports no additional constitutional complaints Eyes: Reports as per HPI and Reports no additional eye complaints Reports system reviewed and no additional complaints, except as documented Cardiovascular: Reports as per HPI and Reports no additional cardiovascular complaints Respiratory: Reports as per HPI and Reports no additional respiratory complaints Gastrointestinal: Reports as per HPI and Reports no additional gastrointestinal complaints Genitourinary: Reports no additional female genitourinary complaints Musculoskeletal: Reports no additional musculoskeletal complaints Skin/Breast: Reports system reviewed and no additional complaints, except as docu Psychiatric: Reports no additional psychiatric complaints Endocrine: Reports no additional endocrine complaints Hematologic/Lymphatic: Reports no additional hematologic/lymphatic complaints Allergic/Immunologic: Reports no additional allergic/immunologic complaints Reports system reviewed and no additional complaints, except as documented and Reports Abnormal speech present <Shelli Rodriguez MD - Last Filed: 07/13/22 20:57> PMFSH Past Medical History Medical History: Medical History Hemorrhoid Hernia <URI Torres - Last Filed: 07/13/22 18:37> Surgical History: Surgical History H/O tubal ligation <URI Torres - Last Filed: 07/13/22 18:37> Social History Social History: Social History Alcohol intake: never Patient Tobacco Use Status: Never used Tobacco Advance Directives: No Advance Directives Information Provided: No <URI Torres - Last Filed: 07/13/22 18:37> Physical Exam Vital Signs: Vital Signs: Last Vital Signs Temp 98.3 F 07/13/22 18:35 Pulse 87 07/13/22 18:35 Resp 18 07/13/22 18:35 BP 111/71 07/13/22 18:35 Pulse Ox 97 07/13/22 18:35 O2 Del Method 07/13/22 18:35 BMI result Body Mass Index 35.9 <URI Torres - Last Filed: 07/13/22 18:37> Vital Signs: Last Vital Signs Temp 98.3 F 07/13/22 18:35 Pulse 87 07/13/22 18:35 Resp 18 07/13/22 18:35 BP 111/71 07/13/22 18:35 Pulse Ox 97 12/13/22 18:35 O2 Del Method 07/13/22 18:35 BMI result Body Mass Index 35.9 Vital signs have been reviewed as appeared to be correct. Blood pressure normal. Heart rate normal. Respiration rate normal. Temperature normal. Oxygen saturation normal. <Shelli Rodriguez MD - Last Filed: 07/13/22 20:57> Appearance: Alert. Oriented X3. No acute distress. Head: Normal external exam. Normocephalic. Atraumatic. No Ferraro signs noted. No raccoon eyes noted Eyes: PERRLA. EOMI. Conjunctiva and sclera normal. Eyelids normal. ENT: TM's Normal. Pharynx normal. Uvula midline. Moist mucous membranes. No trismus noted. No drooling noted. No muffled voice noted. Neck: Normal inspection. Neck supple. FROM. No adenopathy. Thyroid Normal. No meningeal signs. No neck mass noted. CVS: Normal heart rate and rhythm. Heart sound normal. No murmurs noted. Pulses normal throughout. Respiratory: No respiratory distress. Painless inspiration. Breath sounds normal. Bilateral mild expiratory wheezing with prolonged expiration. Chest nontender. No accessory muscle usage noted or decreased air movement noted. Abdomen: Soft and nontender. Bowel sounds normal in all 4 quadrants. No distention noted. No organomegaly noted. No visible injury noted. Back: No CVA tenderness. Full range of motion noted. Skin: Skin warm and dry. Normal skin color. Normal skin turgor. No rashes/lesions/lacerations noted. Extremities: No lower extremity edema. Extremities exhibit normal range of motion. Extremities nontender. Neuro: Oriented X 3. Cranial nerve exam: II-XII are grossly intact No motor deficit. No sensory deficit. Reflexes normal. <Shelli Rodriguez MD - Last Filed: 07/13/22 20:57> Course Course Course Narrative: 18:35pm - 41yoF presenting to the ER with complaints of a sore throat and a productive cough with white-colored sputum and posttussive emesis since last night worse today. Significant other has similar symptoms. No other sick contacts. No recent travel. Denies any other symptoms complaints or concerns. Plan: Will obtain chest x-ray, strep, COVID/RSV/flu swab. Patient is stable vital signs are stable. She will be sent back to the waiting room for further evaluation treatment [facility] care. <URI Torres - Last Filed: 07/13/22 18:37> Medical Decision Making Differential Diagnosis Differential Diagnoses: The differential diagnosis associated with the presentation includes (Pneumonia/influenza/COVID 19 infection/RSV/strep pharyngitis) <Shelli Rodriguez MD - Last Filed: 07/13/22 20:57> Lab Data MDM Lab Attestation statement: I reviewed the patient's lab results. <Shelli Rodriguez MD - Last Filed: 07/13/22 20:57> Labs: Lab Results 07/13/22 07/13/22 Range/Units 18:38 18:38 Influenza Type A (PCR) NEGATIVE (Negative) Influenza Type B (PCR) NEGATIVE (Negative) RSV RNA Qual (PCR) NEGATIVE (Negative) SARS-CoV-2 RNA (RT-PCR) NEGATIVE (Negative) S. pyogenes GrpA HAYLEY Negative (Negative) <URI Torres - Last Filed: 07/13/22 18:37> Lab Results 07/13/22 07/13/22 Range/Units 18:38 18:38 Influenza Type A (PCR) NEGATIVE (Negative) Influenza Type B (PCR) NEGATIVE (Negative) RSV RNA Qual (PCR) NEGATIVE (Negative) SARS-CoV-2 RNA (RT-PCR) NEGATIVE (Negative) S. pyogenes GrpA HAYLEY Negative (Negative) <Shelli Rodriguez MD - Last Filed: 07/13/22 20:57> Independent Interpretation I performed an independent interpretation of an: Plain X-Ray (Chest: No acute intrathoracic pathology.) <Shelli Rodriguez MD - Last Filed: 07/13/22 20:57> Radiology Impression Discussion of test interpretation with radiology: I have reviewed the radiologist's reading. <Shelli Rodriguez MD - Last Filed: 07/13/22 20:57> Discharge Plan Discharge Clinical Impression: Bronchitis <URI Torres - Last Filed: 07/13/22 18:37> Patient Disposition: Home, Self-Care <URI Torres - Last Filed: 07/13/22 18:37> Instructions: Acute Bronchitis (ED) <URI Torres - Last Filed: 07/13/22 18:37> Prescriptions: New prednisone 20 mg tablet 20 mg PO BID Qty: 10 0RF azithromycin [Zithromax Z-Samy] 250 mg tablet See Rx Instructions .ROUTE .COMPLEX Qty: 6 0RF Rx Instructions: For 250 mg dose pack: take 500 mg today (day 1), then 250 mg for 4 days (days 2-5) albuterol sulfate 90 mcg/actuation HFA aerosol inhaler 1 inh inhalation QID PRN (Reason: shortness of breath or wheezing) Qty: 8.5 0RF No Action ondansetron 4 mg tablet,disintegrating 4 mg PO Q6-8H PRN (Reason: nausea and vomiting) Qty: 7 0RF <URI Torres - Last Filed: 07/13/22 18:37> Referrals: Magdalena Padgett MD [Primary Care Provider] - <URI Torres - Last Filed: 07/13/22 18:37> Stand Alone Forms: Work/School Release <URI Torres - Last Filed: 07/13/22 18:37>
[2022-07-13 18:58] LABS: Strep A Nucleic Acid Negative (Negative)
[2022-07-13 19:23] LABS: Influenza A PCR NEGATIVE (Negative); Influenza B PCR NEGATIVE (Negative); Resp Syncy Virus RNA Qual PCR NEGATIVE (Negative); SARS COV2 PCR INHOUSE NEGATIVE (Negative)
== END 2022-07-13 21:02 | disposition home or self-care (01) ==
PROVIDERS: Physician Assistant Medical; Emergency Provider Emergency Medicine; PCP Internal Medicine
DX: J40 Bronchitis, not specified as acute or chronic (principal); R05.9 Cough, unspecified; M79.10 Myalgia, unspecified site; Z20.822 Contact with and (suspected) exposure to COVID-19; Z79.899 Other long term (current) drug therapy
CPT/HCPCS: 0241U; 36415; 71046; 87651; 99282; 99283

== ENCOUNTER 2022-11-02 19:36 | Emergency (ER) | payer OTHER, SELFPAY ==
--- NOTE | ~2022-11-02 | XR_ITS ---
EXAMINATION: XR CHEST CLINICAL INFORMATION: Shortness of breath COMPARISON: 07/13/2022 TECHNIQUE: Frontal view of the chest was obtained. FINDINGS: No significant abnormality is noted involving the heart, lungs, mediastinum, bony thorax or soft tissues. XR/XR chest 1V IMPRESSION: Unremarkable examination.
[2022-11-02 20:26] VITALS: BP 121/72; PULSE 92; RESP 18; TEMP 36.6; O2SAT 100; BMI 34.3
--- NOTE | 2022-11-02 20:26 | ECG_ITS ---
Test Reason : CHEST PAIN /SOB Blood Pressure : / mmHG Vent. Rate : 100 BPM Atrial Rate : 100 BPM P-R Int : 150 ms QRS Dur : 072 ms QT Int : 338 ms P-R-T Axes : 060 052 035 degrees QTc Int : 436 ms Normal sinus rhythm Normal ECG When compared with ECG of 11-OCT-2021 07:41, Nonspecific T wave abnormality has replaced inverted T waves in Inferior leads Referred By: Meena Ferreira Electronically Signed By:Jerry Pat
--- NOTE | 2022-11-02 20:27 | ED_ITS ---
HPI - General Adult General Chief complaint: Chest Pain <URI Sadler - Last Filed: 11/02/22 20:28> Stated complaint: SOB/Back pain <URI Sadler - Last Filed: 11/02/22 20:28> Time Seen by Provider: 11/02/22 23:53 <URI Sadler - Last Filed: 11/02/22 20:28> Source: patient <Chastity Roberts MD - Last Filed: 11/03/22 00:57> Mode of arrival: ambulatory <Chastity Roberts MD - Last Filed: 11/03/22 00:57> History of Present Illness HPI narrative: 42-year-old female who presents with primarily shortness of breath and chest discomfort that she states is traveling through her right ribs, shortness of breath started today she denies any recent cough, fevers, chills, GI or symptoms. Patient reports she has back pain with deep inspirations yesterday. <Chastity Roberts MD - Last Filed: 11/03/22 00:57> Related Data Home medications: Previous Rx's Medication Instructions Recorded ondansetron 4 mg disintegrating 4 mg PO Q6-8H PRN nausea and 05/26/21 tablet vomiting #7 tabs albuterol sulfate 90 mcg/actuation 1 inh inhalation QID PRN shortness 07/13/22 aerosol inhaler of breath or wheezing #8.5 grams azithromycin 250 mg tablet See Rx Instructions PO .COMPLEX #6 07/13/22 (Zithromax Z-Samy) tabs prednisone 20 mg tablet 20 mg PO BID #10 tabs 07/13/22 prednisone 50 mg tablet 50 mg PO DAILY 4 days #4 tabs 11/03/22 <URI Sadler - Last Filed: 11/02/22 20:28> Allergies/adverse reactions: Allergies Allergy/AdvReac Type Severity Reaction Status Date / Time No Known Allergies Allergy Verified 11/02/22 20:28 [No Known Allergies*] <URI Sadler - Last Filed: 11/02/22 20:28> Review of Systems Review of Systems: Pertinent positives and negatives as stated in HPI <Chastity Roberts MD - Last Filed: 11/03/22 00:57> PMFSH Past Medical History Source: nursing notes reviewed <Chastity Roberts MD - Last Filed: 11/03/22 00:57> Medical History: Medical History Hemorrhoid Hernia <URI Sadler - Last Filed: 11/02/22 20:28> Surgical History: Surgical History H/O tubal ligation <URI Sadler - Last Filed: 11/02/22 20:28> Social History Social History: Social History Alcohol intake: never Patient Tobacco Use Status: Never used Tobacco Advance Directives: No Advance Directives Information Provided: Yes <URI Sadler - Last Filed: 11/02/22 20:28> Physical Exam ED Vital Signs: Vital Signs - 24 hr 11/02/22 20:26 11/02/22 23:57 11/03/22 00:20 Temperature 98 F 97.9 F Pulse Rate 92 88 81 Respiratory Rate 18 14 14 Blood Pressure 121/72 121/59 L Pulse Oximetry 100 98 99 Oxygen Delivery Method Aerosol Mask Room Air Room Air BMI result Body Mass Index 34.3 <URI Sadler - Last Filed: 11/02/22 20:28> Vital Signs - 24 hr 11/02/22 20:26 11/02/22 23:57 11/03/22 00:20 Temperature 98 F 97.9 F Pulse Rate 92 88 81 Respiratory Rate 18 14 14 Blood Pressure 121/72 121/59 L Pulse Oximetry 100 98 99 Oxygen Delivery Method Aerosol Mask Room Air Room Air BMI result Body Mass Index 34.3 VITAL SIGNS: Reviewed. GENERAL: Well developed, well nourished, in no acute distress. HEAD: Normocephalic/atraumatic EYES: PERRLA, EOMI EARS: Ext canals without abnormality, TMs non-bulging and non-erythematous NOSE: Nares patent bilateral OROPHARYNX: no oral lesions noted, posterior pharynx clear and non-erythematous without noted tonsillar enlargement/erythema/exudates NECK: Supple, no adenopathy LUNGS: Normal breath sounds, no expiratory wheeze, no tachypnea. SpO2<99> CARDIOVASCULAR: Regular rate and rhythm without noted murmurs ABDOMEN: Soft, non-tender, non-distended with bowel sounds. MUSCULOSKELETAL: No tenderness, deformities, or effusions noted on gross inspection. EXTREMITIES: No cyanosis, clubbing or edema. SKIN: Inspection of the skin reveals no rashes NEUROLOGIC: Alert and oriented x 4. Strength and sensation to light touch were grossly intact x 4. <Chastity Roberts MD - Last Filed: 11/03/22 00:57> Course Course Course Narrative: This is an RME: Additional HPI, ROS, PE not included below will be deferred to primary provider. 42-year-old female presents with back pain, shortness of breath, pleuritic chest pain, patient reports stabbing pain in her back when she takes a deep breath, also reporting substernal chest pressure worse with deep breathing. Shortness of breath is worse with ambulation. Patient is a former smoker she stopped 9 years ago, patient is not on control or hormones, no history of cancer or history of DVT for PE. On exam patient 100% on room air, heart rate 96, patient is well-appearing. Plan at this time labs, imaging, viral test. Although patient is PERC negative her story is concerning therefore will order D-dimer. <URI Sadler - Last Filed: 11/02/22 20:28> Medical Decision Making Medical Decision Making MDM Narrative: 42-year-old female with history and clinical presentation consistent with being a previous smoker on developing shortness of breath, she is PERC negative, no evidence to suggest infection and my review of all investigations my interpretation is that this is likely chronic lung disease, patient was treated with combination analgesics and started on a short course of steroids. She is otherwise discharged home in stable condition without evidence of tachypnea, tachycardia, and patient is afebrile. <Chastity Roberts MD - Last Filed: 11/03/22 00:57> Differential Diagnosis Please see the discussion above <Chastity Roberts MD - Last Filed: 11/03/22 00:57> Lab Data Please see the discussion above <Chastity Roberts MD - Last Filed: 11/03/22 00:57> Result Diagrams: 11/02/22 20:56 11/02/22 20:56 <URI Sadler - Last Filed: 11/02/22 20:28> Labs: Lab Results 11/02/22 11/02/22 11/02/22 Range/Units 20:56 20:56 20:56 WBC 11.2 H (4.8-10.8) X10*3/uL RBC 4.43 (4.20-5.50) X10*6/uL Hgb 8.6 L (12.0-16.0) g/dl Hct 30.1 L (37.0-47.0) % MCV 67.9 L (80.0-98.0) fL MCH 19.4 L (27.0-33.0) pg MCHC 28.6 L (31.0-35.0) g/dl RDW 17.9 H (11.0-16.0) % Plt Count 674 H (160-400) X10*3/uL MPV 9.2 L (9.4-12.3) fL Immature Gran % (Auto) 0.4 (0.0-0.4) % Neut % (Auto) 61.8 (45-73) % Lymph % (Auto) 27.7 (20-40) % Stewart % (Auto) 7.5 (2-11) % Eos % (Auto) 2.0 (0-4) % Baso % (Auto) 0.6 (0-2) % Lymph # (Auto) 3.1 (1.2-4.9) X10*3/uL Stewart # (Auto) 0.8 (0.1-1.2) X10*3/uL Eos # (Auto) 0.2 (0.0-0.4) X10*3/uL Baso # (Auto) 0.1 (0.0-0.2) X10*3/uL Abs Immat Gran (auto) 0.05 H (0.00-0.03) X10*3/uL Absolute Neuts (auto) 6.9 (2.0-8.3) x10*3/uL Absolute Nucleated RBC 0.000 (0.0-0.012) X10*3/uL Nucleated RBC % (auto) 0.0 (0.0-0.2) /100WBC PT 11.4 (10.0-13.1) SEC INR 1.0 (0.9-1.1) D-Dimer High Sensitivty NG/ML Sodium 139 (135-145) mmol/L Potassium 4.0 (3.3-5.1) mmol/L Chloride 108 (96-108) mmol/L Carbon Dioxide 24 (22-29) mmol/L Anion Gap 11 L (12-20) BUN 7 L (9-16) mg/dL Creatinine 0.79 (0.5-1.4) mg/dL Estim Creat Clear Calc 83.1 Estimated GFR > 60 Random Glucose 99 (60-115) mg/dL Calcium 9.3 (8.4-10.2) mg/dL Total Bilirubin 0.4 (0.0-1.0) mg/dL AST 11 (5-31) U/L ALT 8 (0-31) U/L Alkaline Phosphatase 68 (39-117) U/L Troponin I High Sens (<3.5-17.0) ng/L Total Protein 6.9 (6.5-8.0) g/dL Albumin 3.9 (3.5-5.0) g/dL COVID-19 (LA) (Negative) COVID-19 Clin Com 11/02/22 11/02/22 11/02/22 Range/Units 20:56 20:56 20:56 WBC (4.8-10.8) X10*3/uL RBC (4.20-5.50) X10*6/uL Hgb (12.0-16.0) g/dl Hct (37.0-47.0) % MCV (80.0-98.0) fL MCH (27.0-33.0) pg MCHC (31.0-35.0) g/dl RDW (11.0-16.0) % Plt Count (160-400) X10*3/uL MPV (9.4-12.3) fL Immature Gran % (Auto) (0.0-0.4) % Neut % (Auto) (45-73) % Lymph % (Auto) (20-40) % Stewart % (Auto) (2-11) % Eos % (Auto) (0-4) % Baso % (Auto) (0-2) % Lymph # (Auto) (1.2-4.9) X10*3/uL Stewart # (Auto) (0.1-1.2) X10*3/uL Eos # (Auto) (0.0-0.4) X10*3/uL Baso # (Auto) (0.0-0.2) X10*3/uL Abs Immat Gran (auto) (0.00-0.03) X10*3/uL Absolute Neuts (auto) (2.0-8.3) x10*3/uL Absolute Nucleated RBC (0.0-0.012) X10*3/uL Nucleated RBC % (auto) (0.0-0.2) /100WBC PT (10.0-13.1) SEC INR (0.9-1.1) D-Dimer High Sensitivty 187 NG/ML Sodium (135-145) mmol/L Potassium (3.3-5.1) mmol/L Chloride (96-108) mmol/L Carbon Dioxide (22-29) mmol/L Anion Gap (12-20) BUN (9-16) mg/dL Creatinine (0.5-1.4) mg/dL Estim Creat Clear Calc Estimated GFR Random Glucose (60-115) mg/dL Calcium (8.4-10.2) mg/dL Total Bilirubin (0.0-1.0) mg/dL AST (5-31) U/L ALT (0-31) U/L Alkaline Phosphatase (39-117) U/L Troponin I High Sens < 2.7 (<3.5-17.0) ng/L Total Protein (6.5-8.0) g/dL Albumin (3.5-5.0) g/dL COVID-19 (LA) Negative (Negative) COVID-19 Clin Com See Note <URI Sadler - Last Filed: 11/02/22 20:28> Lab Results 11/02/22 11/02/22 11/02/22 Range/Units 20:56 20:56 20:56 WBC 11.2 H (4.8-10.8) X10*3/uL RBC 4.43 (4.20-5.50) X10*6/uL Hgb 8.6 L (12.0-16.0) g/dl Hct 30.1 L (37.0-47.0) % MCV 67.9 L (80.0-98.0) fL MCH 19.4 L (27.0-33.0) pg MCHC 28.6 L (31.0-35.0) g/dl RDW 17.9 H (11.0-16.0) % Plt Count 674 H (160-400) X10*3/uL MPV 9.2 L (9.4-12.3) fL Immature Gran % (Auto) 0.4 (0.0-0.4) % Neut % (Auto) 61.8 (45-73) % Lymph % (Auto) 27.7 (20-40) % Stewart % (Auto) 7.5 (2-11) % Eos % (Auto) 2.0 (0-4) % Baso % (Auto) 0.6 (0-2) % Lymph # (Auto) 3.1 (1.2-4.9) X10*3/uL Stewart # (Auto) 0.8 (0.1-1.2) X10*3/uL Eos # (Auto) 0.2 (0.0-0.4) X10*3/uL Baso # (Auto) 0.1 (0.0-0.2) X10*3/uL Abs Immat Gran (auto) 0.05 H (0.00-0.03) X10*3/uL Absolute Neuts (auto) 6.9 (2.0-8.3) x10*3/uL Absolute Nucleated RBC 0.000 (0.0-0.012) X10*3/uL Nucleated RBC % (auto) 0.0 (0.0-0.2) /100WBC PT 11.4 (10.0-13.1) SEC INR 1.0 (0.9-1.1) D-Dimer High Sensitivty NG/ML Sodium 139 (135-145) mmol/L Potassium 4.0 (3.3-5.1) mmol/L Chloride 108 (96-108) mmol/L Carbon Dioxide 24 (22-29) mmol/L Anion Gap 11 L (12-20) BUN 7 L (9-16) mg/dL Creatinine 0.79 (0.5-1.4) mg/dL Estim Creat Clear Calc 83.1 Estimated GFR > 60 Random Glucose 99 (60-115) mg/dL Calcium 9.3 (8.4-10.2) mg/dL Total Bilirubin 0.4 (0.0-1.0) mg/dL AST 11 (5-31) U/L ALT 8 (0-31) U/L Alkaline Phosphatase 68 (39-117) U/L Troponin I High Sens (<3.5-17.0) ng/L Total Protein 6.9 (6.5-8.0) g/dL Albumin 3.9 (3.5-5.0) g/dL COVID-19 (LA) (Negative) COVID-19 Clin Com 11/02/22 11/02/22 11/02/22 Range/Units 20:56 20:56 20:56 WBC (4.8-10.8) X10*3/uL RBC (4.20-5.50) X10*6/uL Hgb (12.0-16.0) g/dl Hct (37.0-47.0) % MCV (80.0-98.0) fL MCH (27.0-33.0) pg MCHC (31.0-35.0) g/dl RDW (11.0-16.0) % Plt Count (160-400) X10*3/uL MPV (9.4-12.3) fL Immature Gran % (Auto) (0.0-0.4) % Neut % (Auto) (45-73) % Lymph % (Auto) (20-40) % Stewart % (Auto) (2-11) % Eos % (Auto) (0-4) % Baso % (Auto) (0-2) % Lymph # (Auto) (1.2-4.9) X10*3/uL Stewart # (Auto) (0.1-1.2) X10*3/uL Eos # (Auto) (0.0-0.4) X10*3/uL Baso # (Auto) (0.0-0.2) X10*3/uL Abs Immat Gran (auto) (0.00-0.03) X10*3/uL Absolute Neuts (auto) (2.0-8.3) x10*3/uL Absolute Nucleated RBC (0.0-0.012) X10*3/uL Nucleated RBC % (auto) (0.0-0.2) /100WBC PT (10.0-13.1) SEC INR (0.9-1.1) D-Dimer High Sensitivty 187 NG/ML Sodium (135-145) mmol/L Potassium (3.3-5.1) mmol/L Chloride (96-108) mmol/L Carbon Dioxide (22-29) mmol/L Anion Gap (12-20) BUN (9-16) mg/dL Creatinine (0.5-1.4) mg/dL Estim Creat Clear Calc Estimated GFR Random Glucose (60-115) mg/dL Calcium (8.4-10.2) mg/dL Total Bilirubin (0.0-1.0) mg/dL AST (5-31) U/L ALT (0-31) U/L Alkaline Phosphatase (39-117) U/L Troponin I High Sens < 2.7 (<3.5-17.0) ng/L Total Protein (6.5-8.0) g/dL Albumin (3.5-5.0) g/dL COVID-19 (LA) Negative (Negative) COVID-19 Clin Com See Note <Chastity Roberts MD - Last Filed: 11/03/22 00:57> Independent Interpretation I performed an independent interpretation of an: EKG <Chastity Roberts MD - Last Filed: 11/03/22 00:57> Interpretation: Normal sinus rhythm, HR-100, no STEMI, AK/QRS/QTC are within normal limits. <Chastity Roberts MD - Last Filed: 11/03/22 00:57> Radiology Impression Radiologist Impression: My interpretation is in agreement with radiology's impression of the imaging study. <Chastity Roberts MD - Last Filed: 11/03/22 00:57> External Record Review External record reviewed: Prior outpatient labs <Chastity Roberts MD - Last Filed: 11/03/22 00:57> Discharge Plan Discharge Clinical Impression: Atypical chest pain, Shortness of breath <URI Sadler - Last Filed: 11/02/22 20:28> Patient Disposition: Home, Self-Care <URI Sadler - Last Filed: 11/02/22 20:28> Instructions: Shortness of Breath (ED) <URI Sadler - Last Filed: 11/02/22 20:28> Additional Instructions: 1. Resume all home medications as prescribed. 2. Complete the entire course steroids 3. Follow-up with your primary care provider by calling the office 1st thing in the morning. Return to the ER for any worsening symptoms. <URI Sadler - Last Filed: 11/02/22 20:28> Prescriptions: New prednisone 50 mg tablet 50 mg PO DAILY 4 Days Qty: 4 0RF No Action ondansetron 4 mg tablet,disintegrating 4 mg PO Q6-8H PRN (Reason: nausea and vomiting) Qty: 7 0RF prednisone 20 mg tablet 20 mg PO BID Qty: 10 0RF azithromycin [Zithromax Z-Samy] 250 mg tablet See Rx Instructions .ROUTE .COMPLEX Qty: 6 0RF Rx Instructions: For 250 mg dose pack: take 500 mg today (day 1), then 250 mg for 4 days (days 2-5) albuterol sulfate 90 mcg/actuation HFA aerosol inhaler 1 inh inhalation QID PRN (Reason: shortness of breath or wheezing) Qty: 8.5 0RF <URI Sadler - Last Filed: 11/02/22 20:28> Referrals: Magdalena Padgett MD [Primary Care Provider] - <URI Sadler - Last Filed: 11/02/22 20:28>
--- NOTE | 2022-11-02 20:58 | MHC.EDTECH ---
patient ekg done and was read by provider ,blood drawn and covid swab collected and sent to lab .
[2022-11-02 21:01] LABS: MANUAL DIFF FLAG NO
[2022-11-02 21:06] LABS: Basophils Absolute Auto 0.1 X10*3/uL (0.0-0.2); Basophils Percent Auto 0.6 % (0-2); Eosinophils Absolute Auto 0.2 X10*3/uL (0.0-0.4); Hematocrit 30.1 % (37.0-47.0); Hemoglobin 8.6 g/dl (12.0-16.0); Imm Gran Abs Auto 0.05 X10*3/uL (0.00-0.03); Imm Gran Pct Auto 0.4 % (0.0-0.4); Lymphocytes Absolute Auto 3.1 X10*3/uL (1.2-4.9); Lymphocytes Percent Auto 27.7 % (20-40); Mean Corpuscular HGB Conc 28.6 g/dl (31.0-35.0); Mean Corpuscular Hemoglobin 19.4 pg (27.0-33.0); Mean Corpuscular Volume 67.9 fL (80.0-98.0); Mean Platelet Volume 9.2 fL (9.4-12.3); Monocytes Absolute Auto 0.8 X10*3/uL (0.1-1.2); Monocytes Percent Auto 7.5 % (2-11); Neutrophils Absolute Auto 6.9 x10*3/uL (2.0-8.3); Neutrophils Percent Auto 61.8 % (45-73); Platelet Count 674 X10*3/uL (160-400); Red Blood Count 4.43 X10*6/uL (4.20-5.50); Red Cell Distribution Width 17.9 % (11.0-16.0); White Blood Count 11.2 X10*3/uL (4.8-10.8)
[2022-11-02 21:08] LABS: Prothrombin Time 11.4 SEC (10.0-13.1)
[2022-11-02 21:11] LABS: D Dimer High Sensitivity 187 NG/ML
[2022-11-02 21:18] LABS: Alanine Aminotransferase 8 U/L (0-31); Albumin Level 3.9 g/dL (3.5-5.0); Alkaline Phosphatase 68 U/L (39-117); Anion Gap 11 (12-20); Aspartate Amino Transferase 11 U/L (5-31); Bilirubin Total 0.4 mg/dL (0.0-1.0); Blood Urea Nitrogen 7 mg/dL (9-16); Calcium 9.3 mg/dL (8.4-10.2); Carbon Dioxide 24 mmol/L (22-29); Chloride 108 mmol/L (96-108); Creatinine Clr Calc Pharmacy 83.1; Estimated Glomerular Filt Rate > 60; Glucose Random 99 mg/dL (60-115); Sodium 139 mmol/L (135-145); Total Protein 6.9 g/dL (6.5-8.0)
[2022-11-02 21:20] LABS: COVID-19 Test Negative (Negative); IDNOW Serial# BCCEAD1C
[2022-11-02 21:29] LABS: Troponin-I High Sensitivity < 2.7 ng/L (<3.5-17.0)
[2022-11-02 23:57] VITALS: PULSE 88; RESP 14; O2SAT 98
[2022-11-03 00:20] VITALS: BP 121/59; PULSE 81; RESP 14; TEMP 36.6; O2SAT 99
[2022-11-03] MEDS: Acetaminophen 325 MG TABLET 975 MG PO (00:53)
[2022-11-03] MEDS: Ibuprofen 400 MG TABLET PO (00:53)
[2022-11-03] MEDS: predniSONE 20 MG TABLET 40 MG PO (00:54)
== END 2022-11-03 01:04 | disposition home or self-care (01) ==
PROVIDERS: Physician Assistant; Emergency Provider Student in an Organized Health Care Education/Training Program; PCP Internal Medicine
DX: R07.89 Other chest pain (principal); R06.02 Shortness of breath; Z20.822 Contact with and (suspected) exposure to COVID-19
CPT/HCPCS: 36415; 71045; 80053; 84484; 85025; 85379; 85610; 87635; 93005; 99283; 99284

== ENCOUNTER 2023-01-26 19:47 | Emergency (ER) | payer OTHER, SELFPAY ==
[2023-01-26 19:49] VITALS: BP 122/69; PULSE 86; RESP 18; TEMP 36.6; O2SAT 96; BMI 36.4
--- NOTE | 2023-01-26 19:50 | ED.URI ---
HPI - URI/Sore Throat General Chief Complaint: General Medical Stated Complaint: Covid? Time Seen by Provider: 01/26/23 19:53 Source: patient, RN notes reviewed and old records reviewed History of Present Illness HPI Narrative: 42-year-old female with no significant past medical history presenting to the ED complaining of sore throat, diarrhea, nausea, fatigue, headaches x today with COVID-19 exposure. Admits boyfriend tested positive for COVID today. Denies cough, chest pain, shortness of breath, fever/chills, inability to swallow MD elicited complaint: sore throat, rhinorrhea and nasal congestion Onset (ago): hour(s) Related Data Previous Rx's Medication Instructions Recorded ondansetron 4 mg disintegrating 4 mg PO Q6-8H PRN nausea and 05/26/21 tablet vomiting #7 tabs albuterol sulfate 90 mcg/actuation 1 inh inhalation QID PRN shortness 07/13/22 aerosol inhaler of breath or wheezing #8.5 grams azithromycin 250 mg tablet See Rx Instructions PO .COMPLEX #6 07/13/22 (Zithromax Z-Samy) tabs prednisone 20 mg tablet 20 mg PO BID #10 tabs 07/13/22 prednisone 50 mg tablet 50 mg PO DAILY 4 days #4 tabs 11/03/22 Allergies Allergy/AdvReac Type Severity Reaction Status Date / Time No Known Allergies Allergy Verified 11/02/22 20:28 [No Known Allergies*] Review of Systems Review of Systems: Constitutional: No Fever, No Chills, +fatigue ENT/Mouth: No Ear Pain, + Nasal Congestion, No Sinus Pain, No Hoarseness, + sore throat, + Rhinorrhea, No Swallowing Difficulty Cardiovascular: No Chest Pain, No SOB Respiratory: No Cough, No Sputum, No Wheezing Gastrointestinal: + Nausea, No Vomiting, No Diarrhea, No Constipation, No Abdominal pain Musculoskeletal: No joint pain, + Myalgias, No Joint Swelling Skin: No Skin Lesions, No rash Neuro: No Weakness, No Numbness, No Paresthesias, +IRIZARRY Yes all other systems are reviewed and are negative Constitutional: Constitutional: Reports as per [facility] Past Medical History Attestation statement: The following information was validated with the patient. Source: old records reviewed Medical History Hemorrhoid Hernia Surgical History H/O tubal ligation Social History Social History Alcohol intake: never Patient Tobacco Use Status: Never used Tobacco Smoked in Last 30 Days: No Use of substances other than those prescribed or required for medical reasons: No Advance Directives: No Advance Directives Information Provided: No Patient : No Physical Exam Vital Signs: Vital Signs: Last Vital Signs Temp 98.1 F 01/26/23 23:05 Pulse 69 01/26/23 23:05 Resp 18 01/26/23 23:05 BP 107/62 01/26/23 23:05 Pulse Ox 100 01/26/23 23:05 O2 Del Method Room Air 01/26/23 23:05 BMI result Body Mass Index 36.4 Const: General: cooperative, healthy appearing, no acute distress, alert and awake Orientation/consciousness: patient oriented x3 Limitations: no limitations HEENT: Head: Yes normal to inspection and Yes atraumatic Ears: hearing grossly normal bilaterally, external ears normal, TM's normal bilaterally and mastoids normal General nose exam: Normal external nose present Face and sinus: Yes normal facial exam Throat: Yes uvula midline, Yes abnormal tonsil (+b/l tonsillar swelling, no erythema or exudates), No peritonsillar mass, No uvula laterally displaced and No uvular edema Eyes: General: appearance normal, both eyes and all related structures EOM: EOMs intact bilaterally Neck: Neck: Yes normal visual inspection, Yes no lymphadenopathy, Yes no meningeal signs, Yes supple and No anterior neck swelling Resp: Effort & Inspection: normal respiratory effort, no respiratory distress and no stridor Auscultation: clear to auscultation bilaterally, no crackles, no rhonchi and no wheezes Cardio: Rate: regular rate Heart sounds: S1 normal heart sound present and S2 normal heart sound present GI: Inspection: Yes normal to inspection Skin: Rashes: no rashes Wounds: no wounds Neuro: General: patient oriented x3, tone normal and no meningeal signs Gait exam (Neuro): Normal gait present Extrem: General: Yes normal to inspection Course Reevaluation(s) Reevaluation #1: Patient appears well, she was negative for COVID-19, negative for strep. I discussed these findings with the patient. I do still believe the patient likely has COVID-19 as her boyfriend just tested positive today. The patient was instructed to continue symptomatic care. Medical Decision Making Medical Decision Making [facility] Narrative: 42-year-old female with no significant past medical history presenting to the ED complaining of sore throat, diarrhea, nausea, fatigue, headaches x today with COVID-19 exposure. On exam vital signs stable, NAD, nontoxic appearing, bilateral tonsillar swelling noted without erythema or exudate, uvula midline, TMs WNL, lungs CTA. Concern for viral illness including COVID-19 vs strep pharyngitis. Low suspicion for [employer], mastoiditis, pneumonia Plan: COVID-19 testing, rapid strep Please refer to course for remaining clinical decision making, interpretation of labs/imaging results, and discussions with consultants and/or family members. Differential Diagnosis Differential Diagnoses: The differential diagnosis associated with the presentation includes As above Lab Data [facility] Lab Attestation statement: I reviewed the patient's lab results. Labs: Lab Results 01/26/23 01/26/23 Range/Units 20:02 20:02 COVID-19 ([place]) Negative (Negative) COVID-19 Clin Com See Note S. pyogenes GrpA HAYLEY Negative (Negative) External Record Review External record reviewed: Inpatient record, Office record, Outpatient record, Prior outpatient labs, Prior outpatient radiology, Primary care record and Outside ED record Tests considered The following testing was considered but not selected: As above Discharge Plan Discharge Clinical Impression: Acute viral syndrome Patient Disposition: Home, Self-Care Instructions: Viral Syndrome (ED) Additional Instructions: Your COVID test was negative Your strep test was negative Hit it is still possible that you have COVID any may test positive if you test again in 2 days In the meantime use Motrin/Tylenol for sore throat, body aches, fevers Hydrate well Follow-up with your primary doctor Prescriptions: No Action ondansetron 4 mg tablet,disintegrating 4 mg PO Q6-8H PRN (Reason: nausea and vomiting) Qty: 7 0RF prednisone 20 mg tablet 20 mg PO BID Qty: 10 0RF azithromycin [Zithromax Z-Samy] 250 mg tablet See Rx Instructions .ROUTE .COMPLEX Qty: 6 0RF Rx Instructions: For 250 mg dose pack: take 500 mg today (day 1), then 250 mg for 4 days (days 2-5) albuterol sulfate 90 mcg/actuation HFA aerosol inhaler 1 inh inhalation QID PRN (Reason: shortness of breath or wheezing) Qty: 8.5 0RF prednisone 50 mg tablet 50 mg PO DAILY 4 Days Qty: 4 0RF Stand Alone Forms: Work/School Release
[2023-01-26 20:20] LABS: IDNOW Serial# 08D9AD1C
[2023-01-26 20:21] LABS: Strep A Nucleic Acid Negative (Negative)
[2023-01-26 20:30] LABS: IDNOW Serial# BCCEAD1C
[2023-01-26 20:31] LABS: COVID-19 Test Negative (Negative)
[2023-01-26 20:41] VITALS: BP 106/60; PULSE 78; RESP 18; TEMP 36.8; O2SAT 99
[2023-01-26 20:42] VITALS: BP 123/69; PULSE 81; RESP 18; TEMP 36.7; O2SAT 99
[2023-01-26 23:05] VITALS: BP 107/62; PULSE 69; RESP 18; TEMP 36.7; O2SAT 100
--- NOTE | 2023-01-27 00:45 | PC.NURSE ---
patient in the process of being discharged
== END 2023-01-27 00:49 | disposition home or self-care (01) ==
PROVIDERS: Physician Assistant; Emergency Provider Emergency Medicine
DX: B34.9 Viral infection, unspecified (principal); Z20.822 Contact with and (suspected) exposure to COVID-19
CPT/HCPCS: 87635; 87651; 99283; 99284

== ENCOUNTER 2023-02-13 16:00 | Emergency (ER) | payer OTHER, SELFPAY ==
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
[2023-02-13 16:46] VITALS: BP 112/69; PULSE 84; RESP 18; TEMP 36; O2SAT 98; BMI 38.2
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
[2023-02-13] MEDS: Acetaminophen 325 MG TABLET 975 MG PO (17:15)
== END 2023-02-13 19:27 | disposition home or self-care (01) ==
PROVIDERS: Emergency Provider Emergency Medicine; PCP Physician Assistant Medical
DX: S46.911A Strain of unspecified muscle, fascia and tendon at shoulder and upper arm level, right arm, initial encounter (principal); M75.31 Calcific tendinitis of right shoulder; M54.2 Cervicalgia; R51.9 Headache, unspecified; V43.62XA Car passenger injured in collision with other type car in traffic accident, initial encounter; Y93.9 Activity, unspecified; Y92.9 Unspecified place or not applicable; Y99.9 Unspecified external cause status
CPT/HCPCS: 73030; 99283

== ENCOUNTER 2023-11-17 18:02 | Emergency (ER) | payer SELFPAY ==
[2023-11-17 19:25] VITALS: BP 148/85; PULSE 95; RESP 14; TEMP 36.7; O2SAT 98; BMI 38.4
--- NOTE | 2023-11-17 19:26 | ED_ITS ---
HPI - General Adult General Chief complaint: Abdominal Pain Stated complaint: loose stools x 4 days Source: patient Mode of arrival: ambulatory Limitations: no limitations History of Present Illness HPI narrative: patient presents with diarrhea and increasing pain over the last 5 days. She states she is worried because she is not better Onset (ago): day(s) Severity: mild Related Data Previous Rx's ?Medication ?Instructions ?Recorded ondansetron 4 mg disintegrating 4 mg PO Q6-8H PRN nausea and 05/26/21 tablet vomiting #7 tabs albuterol sulfate 90 mcg/actuation 1 inh inhalation QID PRN shortness 07/13/22 aerosol inhaler of breath or wheezing #8.5 grams azithromycin 250 mg tablet See Rx Instructions PO .COMPLEX #6 07/13/22 (Zithromax Z-Samy) tabs prednisone 20 mg tablet 20 mg PO BID #10 tabs 07/13/22 prednisone 50 mg tablet 50 mg PO DAILY 4 days #4 tabs 11/03/22 cyclobenzaprine 10 mg tablet 10 mg PO Q8H #10 tabs 02/13/23 naproxen 500 mg tablet 500 mg PO BID PRN pain #10 tabs 02/13/23 loperamide 2 mg capsule (Imodium 2 mg PO Q6H PRN loose stool #20 11/18/23 A-D) caps Allergies Allergy/AdvReac Type Severity Reaction Status Date / Time No Known Allergies Allergy Verified 11/17/23 19:29 [No Known Allergies*] Review of Systems 2 Review of Systems: Yes all other systems are reviewed and are negative Neurologic: Denies Sensory deficit (Neuro) [facility] Past Medical History Medical History Hemorrhoid Hernia Surgical History H/O tubal ligation Social History Social History Alcohol intake: never Patient Tobacco Use Status: Never used Tobacco Smoked in Last 30 Days: No Use of substances other than those prescribed or required for medical reasons: No Advance Directives: No Advance Directives Information Provided: No Patient : No Physical Exam ED Vital Signs: Vital Signs - 24 hr 11/17/23 19:25 11/18/23 01:35 Temperature 98.0 F 98.6 F Pulse Rate 95 85 Respiratory Rate 14 16 Blood Pressure 148/85 H 118/63 Pulse Oximetry 98 98 Oxygen Delivery Method Room Air BMI result Body Mass Index 38.4 Const General: healthy appearing Nutritional Appearance: average body habitus Orientation/consciousness: oriented to person and patient oriented x3 Limitations: no limitations HENMT Head: Yes normal to inspection Ears: external ears normal General nose exam: Normal external nose present Mouth: Normal oral and palatal mucosa present and oropharynx normal Throat: Yes posterior oropharynx normal Eyes General: appearance normal, both eyes and all related structures Neck Neck: Yes normal visual inspection Chest Chest palpation & inspection: normal inspection of the chest Resp Auscultation: clear to auscultation bilaterally Cardio Jugular venous distension: no JVD Rate: regular rate Rhythm: regular rhythm Heart sounds: S1 normal heart sound present and S2 normal heart sound present GI Inspection: Yes normal to inspection Palpation (GI): Soft to palpation, nontender and No hepatosplenomegaly present Auscultation: normal bowel sounds General: Yes no CVA tenderness Back/Spine/Pelvis Back: no CVA tenderness Skin General skin exam: no rashes or lesions noted Neuro General: oriented to person and patient oriented x3 Cranial nerves: Yes CN's II-XII intact bilaterally Motor exam (neuro): 5/5 motor strength present throughout Sensory Exam: No Sensory deficit (Neuro) Extrem General: Yes normal to inspection Psych Appearance: grossly normal Course Course Course Narrative: This is an RME: Additional HPI, ROS, PE not included below will be deferred to primary provider. 43 yo f presents with diarrhea for past few days. Patient has vomited twice. Reports back pain, with left sided adb pain. Denies dysuria. Reevaluation(s) Reevaluation #1: patient with soft abdomen, non focal abdominal exam, will place on clear liquid diet and lomotil Time: 02:32 Medical Decision Making Differential Diagnosis Differential Diagnoses: The differential diagnosis associated with the presentation includes (viral gastroenteritis, diverticulitis, flu, covid, rsv were all considered) Admission/Observation Consideration of admission/observation: Escalation of care including admission/observation considered (upon arrival patient considered for admission) Lab Data 11/17/23 21:28 11/17/23 21:28 Labs: Lab Results 11/17/23 Range/Units 21:28 WBC 7.2 (4.8-10.8) X10*3/uL RBC 5.00 (4.20-5.50) X10*6/uL Hgb 8.7 L (12.0-16.0) g/dl Hct 30.7 L (37.0-47.0) % MCV 61.4 L (80.0-98.0) fL MCH 17.4 L (27.0-33.0) pg MCHC 28.3 L (31.0-35.0) g/dl RDW 19.7 H (11.0-16.0) % Plt Count 576 H (160-400) X10*3/uL MPV 9.7 (9.4-12.3) fL Immature Gran % (Auto) 2.6 H (0.0-0.4) % Neut % (Auto) 50.3 (45-73) % Lymph % (Auto) 27.6 (20-40) % [place] % (Auto) 18.3 H (2-11) % Eos % (Auto) 0.6 (0-4) % Baso % (Auto) 0.6 (0-2) % Lymph # (Auto) 2.0 (1.2-4.9) X10*3/uL [place] # (Auto) 1.3 H (0.1-1.2) X10*3/uL Eos # (Auto) 0.0 (0.0-0.4) X10*3/uL Baso # (Auto) 0.0 (0.0-0.2) X10*3/uL Abs Immat Gran (auto) 0.19 H (0.00-0.03) X10*3/uL Absolute Neuts (auto) 3.6 (2.0-8.3) x10*3/uL Absolute Nucleated RBC 0.030 H (0.0-0.012) X10*3/uL Nucleated RBC % (auto) 0.4 H (0.0-0.2) /100WBC Smear Tech's Comments VERIFIED Sodium 136 (135-145) mmol/L Potassium 3.2 L (3.3-5.1) mmol/L Chloride 105 (96-108) mmol/L Carbon Dioxide 23 (22-29) mmol/L Anion Gap 11 L (12-20) BUN 6 L (9-16) mg/dL Creatinine 0.78 (0.5-1.4) mg/dL Estim Creat Clear Calc 88.7 Estimated GFR > 60 Random Glucose 101 (60-115) mg/dL Calcium 9.8 (8.4-10.2) mg/dL Total Bilirubin 0.5 (0.0-1.0) mg/dL AST 16 (5-31) U/L ALT 13 (0-31) U/L Alkaline Phosphatase 67 (39-117) U/L Total Protein 8.3 H (6.5-8.0) g/dL Albumin 4.6 (3.5-5.0) g/dL Lipase 21 (8-78) U/L Influenza Type A (PCR) NEGATIVE (Negative) Influenza Type B (PCR) NEGATIVE (Negative) RSV RNA Qual (PCR) NEGATIVE (Negative) SARS-CoV-2 RNA (RT-PCR) NEGATIVE (Negative) Tests considered The following testing was considered but not selected: CT scan of abdomen considered but patient with no WBC, no focal abdominal exam Prescription Management I considered prescription management with: Antibiotic (no bacterial infection appreciated) Discharge Plan Discharge Clinical Impression: Gastroenteritis, Diarrhea Patient Disposition: Home, Self-Care Instructions: Acute Diarrhea (ED) Prescriptions: New loperamide [Imodium A-D] 2 mg capsule 2 mg PO Q6H PRN (Reason: loose stool) Qty: 20 0RF No Action ondansetron 4 mg tablet,disintegrating 4 mg PO Q6-8H PRN (Reason: nausea and vomiting) Qty: 7 0RF prednisone 20 mg tablet 20 mg PO BID Qty: 10 0RF azithromycin [Zithromax Z-Samy] 250 mg tablet See Rx Instructions .ROUTE .COMPLEX Qty: 6 0RF Rx Instructions: For 250 mg dose pack: take 500 mg today (day 1), then 250 mg for 4 days (days 2-5) albuterol sulfate 90 mcg/actuation HFA aerosol inhaler 1 inh inhalation QID PRN (Reason: shortness of breath or wheezing) Qty: 8.5 0RF prednisone 50 mg tablet 50 mg PO DAILY 4 Days Qty: 4 0RF naproxen 500 mg tablet 500 mg PO BID PRN (Reason: pain) Qty: 10 0RF cyclobenzaprine 10 mg tablet 10 mg PO Q8H Qty: 10 0RF Stand Alone Forms: Work/School Release Print Language: Bermudian
--- NOTE | 2023-11-17 20:01 | MHC.EDTECH ---
@20:01 Called patient for lab work in triage, no answer.
[2023-11-17 21:48] LABS: Alanine Aminotransferase 13 U/L (0-31); Albumin Level 4.6 g/dL (3.5-5.0); Alkaline Phosphatase 67 U/L (39-117); Anion Gap 11 (12-20); Aspartate Amino Transferase 16 U/L (5-31); Bilirubin Total 0.5 mg/dL (0.0-1.0); Blood Urea Nitrogen 6 mg/dL (9-16); Calcium 9.8 mg/dL (8.4-10.2); Carbon Dioxide 23 mmol/L (22-29); Chloride 105 mmol/L (96-108); Creatinine Clr Calc Pharmacy 88.7; Estimated Glomerular Filt Rate > 60; Glucose Random 101 mg/dL (60-115); Lipase 21 U/L (8-78); Potassium 3.2 mmol/L (3.3-5.1); Sodium 136 mmol/L (135-145); Total Protein 8.3 g/dL (6.5-8.0)
[2023-11-17 21:53] LABS: Basophils Percent Auto 0.6 % (0-2); Eosinophils Percent Auto 0.6 % (0-4); Hematocrit 30.7 % (37.0-47.0); Hemoglobin 8.7 g/dl (12.0-16.0); Imm Gran Abs Auto 0.19 X10*3/uL (0.00-0.03); Imm Gran Pct Auto 2.6 % (0.0-0.4); Lymphocytes Percent Auto 27.6 % (20-40); Mean Corpuscular HGB Conc 28.3 g/dl (31.0-35.0); Mean Corpuscular Hemoglobin 17.4 pg (27.0-33.0); Mean Platelet Volume 9.7 fL (9.4-12.3); Monocytes Absolute Auto 1.3 X10*3/uL (0.1-1.2); Monocytes Percent Auto 18.3 % (2-11); NRBC Pct Auto 0.4 /100WBC (0.0-0.2); Neutrophils Absolute Auto 3.6 x10*3/uL (2.0-8.3); Neutrophils Percent Auto 50.3 % (45-73); Platelet Count 576 X10*3/uL (160-400); Red Cell Distribution Width 19.7 % (11.0-16.0); White Blood Count 7.2 X10*3/uL (4.8-10.8)
[2023-11-17 21:55] LABS: Mean Corpuscular Volume 61.4 fL (80.0-98.0)
[2023-11-17 21:59] LABS: MANUAL DIFF FLAG SCAN
[2023-11-17 22:07] LABS: SLIDE REVIEW VERIFIED
[2023-11-17 22:12] LABS: Influenza A PCR NEGATIVE (Negative); Influenza B PCR NEGATIVE (Negative); Resp Syncy Virus RNA Qual PCR NEGATIVE (Negative); SARS COV2 PCR INHOUSE NEGATIVE (Negative)
[2023-11-18 01:35] VITALS: BP 118/63; PULSE 85; RESP 16; TEMP 37; O2SAT 98
--- NOTE | 2023-11-18 01:35 | PC.NURSE ---
pt resting in bed at this time, awaiting disposition.
--- NOTE | 2023-11-18 01:44 | MHC.EDTECH ---
PATIENT URINE SAMPLE COLLECTED AND SENT TO LAB ,VITALS TAKEN .
--- NOTE | 2023-11-18 02:35 | PC.NURSE ---
pt reports abd pain has improved with rest, provider into assess pt, plan is for pt to be discharged home.
[2023-11-18 03:01] VITALS: BP 110/80; PULSE 63; RESP 18; TEMP 36.7; O2SAT 98
--- NOTE | 2023-11-18 03:02 | PC.NURSE ---
pt reports improvement upon discharge, reviewed discharge instructions with pt, pt verbalized understanding, no sign of distress at this time.
== END 2023-11-18 03:03 | disposition home or self-care (01) ==
PROVIDERS: Physician Assistant; Emergency Provider Emergency Medicine; PCP Physician Assistant Medical
DX: K52.9 Noninfective gastroenteritis and colitis, unspecified (principal); Z03.818 Encounter for observation for suspected exposure to other biological agents ruled out
CPT/HCPCS: 0241U; 80053; 83690; 85025; 99283; 99284

== ENCOUNTER 2023-11-30 12:36 | Emergency (ER) | payer SELFPAY ==
--- NOTE | ~2023-11-30 | CT_ITS ---
EXAMINATION: CT HEAD WITHOUT CONTRAST CLINICAL INFORMATION: Right facial droop. COMPARISON: None available. TECHNIQUE: Contiguous axial imaging was performed from the skull base to vertex without intravenous administration of contrast. Multiplanar reformatted images are submitted. This CT examination was performed using dose optimization techniques as appropriate, variously including the following: *Automated exposure control *Adjustment of mA and/or kV according to patient size (this includes techniques or standardized protocols for targeted exams where dose is matched to indication/reason for exam; i.e. extremities or head) *Use of iterative reconstruction technique DLP: 639 mGy-cm FINDINGS: There is no acute intracranial hemorrhage or evidence of territorial infarction. No abnormal mass effect or midline shift is seen. Franco to white matter differentiation is well preserved. There is no abnormal attenuation within the brain parenchyma. The ventricles are normal in size. No extra-axial fluid collections are identified. The calvarium and scalp soft tissues are normal. The middle ear cavity and mastoid air cells are clear. The visualized paranasal sinuses are clear. CT/CT head/brain wo IV con IMPRESSION: No acute intracranial pathology.
--- NOTE | ~2023-11-30 | XR_ITS ---
EXAMINATION: XR CHEST CLINICAL INFORMATION: Pain. COMPARISON: Most recent chest radiograph dated 11/02/2022. TECHNIQUE: 2 views of the chest were obtained. FINDINGS: The lungs are clear. The cardiomediastinal silhouette is normal in size. There is no pleural effusion or pneumothorax. No acute osseous abnormality. XR/XR chest 2V IMPRESSION: No acute cardiopulmonary findings.
--- NOTE | 2023-11-30 12:39 | ECG_ITS ---
Test Reason : SOB / CHEST PAIN Blood Pressure : / mmHG Vent. Rate : 073 BPM Atrial Rate : 073 BPM P-R Int : 162 ms QRS Dur : 072 ms QT Int : 396 ms P-R-T Axes : 036 020 015 degrees QTc Int : 436 ms Normal sinus rhythm Low voltage QRS Borderline ECG When compared with ECG of 02-NOV-2022 20:45, No significant change was found Referred By: Generic ED Physician Electronically Signed By:DELGADO GRIFFIN
[2023-11-30 13:43] VITALS: BP 118/63; PULSE 67; RESP 16; TEMP 36.4; O2SAT 100; BMI 40.5
--- NOTE | 2023-11-30 13:44 | ED.GENADULT ---
HPI - General Adult General Chief complaint: Dyspnea Stated complaint: Chest pain 2 days, SOB Time Seen by Provider: 11/30/23 22:48 Source: patient and family Mode of arrival: ambulatory Limitations: no limitations History of Present Illness HPI narrative: 43-year-old female who presents emergency department for evaluation of multiple complaints. The patient states that she has been feeling short of breath, having dyspnea on exertion, chest pain, swelling of her arms legs and body x2 days. She also is complaining of a migraine headache and twitching of her right eye. The patient was seen in the emergency department on 11/17/2023 for a diarrheal illness and was diagnosed with viral gastroenteritis and diarrhea. She was started on Imodium. She states that her diarrhea has resolved. She states that she developed chest pain yesterday. She states the pain is located in her right shoulder and left breast. She states that the pain lasted approximately 2-3 hours and then resolved. She states that she also felt short of breath and dyspnea on exertion at that time. She states that she did not have recurrence of the chest pain or respiratory symptoms today. She states that today developed a migraine headache which was not relieved by her usual Excedrin migraine. She states that the pain is located on the right side of her head, it has a constant, throbbing sensation which is 7/10 associated with nausea but no vomiting. While the patient was waiting in the waiting room, she was noted to have a right facial droop by the provider in triage and CT scan of the brain was ordered. 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 Patient states she also feels like her entire body is swollen. She states she is feeling very tired and fatigued and this has been going on for months. Patient states she does have heavy menstrual periods and in the beginning of her menses she soaks 3 or 4-5 pads per day. Related Data Previous Rx's ?Medication ?Instructions ?Recorded ondansetron 4 mg disintegrating 4 mg PO Q6-8H PRN nausea and 05/26/21 tablet vomiting #7 tabs albuterol sulfate 90 mcg/actuation 1 inh inhalation QID PRN shortness 07/13/22 aerosol inhaler of breath or wheezing #8.5 grams azithromycin 250 mg tablet See Rx Instructions PO .COMPLEX #6 07/13/22 (Zithromax Z-Samy) tabs prednisone 20 mg tablet 20 mg PO BID #10 tabs 07/13/22 prednisone 50 mg tablet 50 mg PO DAILY 4 days #4 tabs 11/03/22 cyclobenzaprine 10 mg tablet 10 mg PO Q8H #10 tabs 02/13/23 naproxen 500 mg tablet 500 mg PO BID PRN pain #10 tabs 02/13/23 loperamide 2 mg capsule (Imodium 2 mg PO Q6H PRN loose stool #20 11/18/23 A-D) caps ferrous sulfate 325 mg (65 mg 325 mg PO BID 90 days #180 tabs 11/30/23 iron) tablet Allergies Allergy/AdvReac Type Severity Reaction Status Date / Time No Known Allergies Allergy Verified 11/30/23 13:46 [No Known Allergies*] Review of Systems Review of Systems: Yes all other systems are reviewed and are negative [facility] Past Medical History [facility] Narrative: Past medical history: GERD, migraines. Social history: The patient states she does not smoke cigarettes at this time. She has a former smoker and stop smoking 10 years prior but she did smoke for 16 years. She denies alcohol use. She denies drug use. Medical History Hemorrhoid Hernia Surgical History H/O tubal ligation Social History Social History Unable to assess alcohol history related to: Unknown Alcohol intake: never Patient Tobacco Use Status: Never used Tobacco Smoked in Last 30 Days: No Use of substances other than those prescribed or required for medical reasons: Unknown Advance Directives: No Advance Directives Information Provided: No Physical Exam ED Vital Signs: Vital Signs - 24 hr 11/30/23 13:43 11/30/23 17:51 11/30/23 20:01 Temperature 97.5 F 97 F Pulse Rate 67 82 72 Respiratory Rate 16 18 19 Blood Pressure 118/63 116/71 135/78 Pulse Oximetry 100 100 96 Oxygen Delivery Method Room Air Room Air Room Air 11/30/23 20:13 11/30/23 23:00 Temperature 98.0 F Pulse Rate 71 68 Respiratory Rate 18 22 H Blood Pressure 115/74 129/64 Pulse Oximetry 100 100 Oxygen Delivery Method Room Air Room Air BMI result Body Mass Index 40.5 Vital signs were normal Exam: General: Awake, alert , she appears to be in distress secondary to her headache Head: Normocephalic, atraumatic EENT: PERRL, Lids normal, sclera normal, conjunctiva normal, nose normal , ears normal, throat without erythema or exudates Neck: Supple, no adenopathy Lung: breath sounds symmetric, no wheezing, rales or rhonchi Chest: symmetric movement, tender over left costochondral joints Heart: regular rate and rhythm, normal S1, S2 , 2/6 systolic murmur best heard at the left lower sternal border Abdomen: soft, non-tender, nondistended, normal bowel sounds Back: no vertebral tenderness, no CVAT Extremities: no deformities, moves all extremities symmetrically, no pitting edema Neuro: Awake, alert, oriented, normal speech, cranial nerves intact, moves all extremities symmetrically Psych: Pleasant, cooperative Course Course Course Narrative: RME- 43-year-old female with past medical history significant for migraines and GERD presents for evaluation of leg swelling, chest pain and shortness of breath for the last 2 days. Plan for cardiac workup. 17:53 Patient now complaining of right facial droop. Plan for CT scan of her brain. Symptoms started 2 hours ago with headache and inability to raise right upper eyelid completely. She has wrinkles to the left side of the forehead, but not the right. Clinically consistent with Cuellar's Palsy Medications Administered Discontinued Medications Generic Name Dose Route Start Last Admin Trade Name Freq PRN Reason Stop Dose Admin Diphenhydramine HCl 50 mg 11/30/23 23:21 11/30/23 23:48 Diphenhydramine Hcl 50 Mg/Ml Vial IVPUSH 11/30/23 23:22 50 mg ONCE STA Administration Ketorolac Tromethamine 15 mg 11/30/23 23:21 11/30/23 23:49 Ketorolac Tromethamine 15 Mg/Ml Vial IVPUSH 11/30/23 23:22 15 mg ONCE STA Administration Metoclopramide HCl 10 mg 11/30/23 23:21 11/30/23 23:49 Metoclopramide Hcl 10 Mg/2 Ml Vial IVPUSH 11/30/23 23:22 10 mg ONCE STA Administration Medical Decision Making Medical Decision Making [facility] Narrative: 43-year-old female with a history of GERD, migraine headaches who presents emergency department for evaluation of an episode of chest pain which occurred yesterday, lasted approximately 2-3 hours and was associated with shortness of breath and dyspnea on exertion with no episode today. She also has noted increased swelling of her upper and lower extremities x2 days. Patient also complained of a migraine headache which she has had in the past. Provider triage was concerned that the patient may have a right facial droop consistent with Cuellar's palsy. Patient's vital signs were normal. On my examination the patient had no facial droop and her neurologic exam was nonfocal. She did have left-sided chest wall tenderness over the costochondral joints. Differential diagnosis: ?Includes but is not limited to myocardial infarction, myocardial ischemia, costochondritis, peripheral edema, nonpitting edema, cardiomyopathy, migraine headache, Cuellar's palsy, stroke, electrolyte abnormalities, anemia Following evaluation was ordered: CBC, CMP, BNP, PT/INR, lipase, urinalysis, COVID-19, influenza, RSV, chest x-ray two view, CT scan of the brain without IV contrast Patient was initially treated with the following: Toradol 15 mg IV, Benadryl 50 mg IV, Reglan 10 mg IV Course: 23:31 My interpretation patient's laboratory evaluation is as follows: Microcytic anemia with an H&H of 7.3 and 26.1 with an MCV of 63. Elevated platelet count of [id number]. PT INR were normal. CMP was normal. High sensitive troponin I was below detectable limits. BNP was normal at 87 suggesting that she has not in CHF or fluid overloaded. Urinalysis was negative for protein, positive for trace blood. Microscopic was negative. COVID-19, RSV and influenza were negative. CT scan of the head revealed no acute findings. EKG was unremarkable and unchanged from previous which is reassuring. This time I believe the patient's chest pain is consistent with costochondritis. Her headache is consistent with her usual migraine. CT scan was negative and I do not see any evidence for facial droop at the time of my evaluation. The patient does have significant microcytic anemia which is most likely caused by iron deficiency due to her heavy menstrual periods. I did discuss this with her. This could explain her fatigue and her swelling. Patient was started on ferrous sulfate 325 mg twice a day for 3 months. She was advised to follow-up with her PCP for re-evaluation. Admission/Observation Consideration of admission/observation: Escalation of care including admission/observation considered Lab Data MDM Lab Attestation statement: I reviewed the patient's lab results. 11/30/23 14:17 11/30/23 14:17 Labs: Lab Results 11/30/23 11/30/23 Range/Units 14:17 20:28 WBC 7.5 (4.8-10.8) X10*3/uL RBC 4.12 L (4.20-5.50) X10*6/uL Hgb 7.3 L (12.0-16.0) g/dl Hct 26.1 L (37.0-47.0) % MCV 63.3 L (80.0-98.0) fL MCH 17.7 L (27.0-33.0) pg MCHC 28.0 L (31.0-35.0) g/dl RDW 20.2 H (11.0-16.0) % Plt Count 895 H D (160-400) X10*3/uL MPV 9.2 L (9.4-12.3) fL Immature Gran % (Auto) 0.4 (0.0-0.4) % Neut % (Auto) 51.7 (45-73) % Lymph % (Auto) 35.1 (20-40) % [place] % (Auto) 9.9 (2-11) % Eos % (Auto) 2.0 (0-4) % Baso % (Auto) 0.9 (0-2) % Lymph # (Auto) 2.6 (1.2-4.9) X10*3/uL [place] # (Auto) 0.7 (0.1-1.2) X10*3/uL Eos # (Auto) 0.2 (0.0-0.4) X10*3/uL Baso # (Auto) 0.1 (0.0-0.2) X10*3/uL Abs Immat Gran (auto) 0.03 (0.00-0.03) X10*3/uL Absolute Neuts (auto) 3.9 (2.0-8.3) x10*3/uL Absolute Nucleated RBC 0.000 (0.0-0.012) X10*3/uL Nucleated RBC % (auto) 0.0 (0.0-0.2) /100WBC PT 11.6 (11.1-13.3) SEC INR 1.0 (0.9-1.1) Sodium 139 (135-145) mmol/L Potassium 3.7 (3.3-5.1) mmol/L Chloride 106 (96-108) mmol/L Carbon Dioxide 24 (22-29) mmol/L Anion Gap 13 (12-20) BUN 7 L (9-16) mg/dL Creatinine 0.73 (0.5-1.4) mg/dL Estim Creat Clear Calc 93.6 Estimated GFR > 60 Random Glucose 88 (60-115) mg/dL Calcium 9.3 (8.4-10.2) mg/dL Iron 14 L (30-160) mcg/dL TIBC 358 (228-428) mcg/dL % Saturation 4 L (15-50) % Unsat Iron Binding 344 ug/dL Total Bilirubin 0.5 (0.0-1.0) mg/dL AST 12 (5-31) U/L ALT 11 (0-31) U/L Alkaline Phosphatase 56 (39-117) U/L Troponin I High Sens < 2.7 (<3.5-17.0) ng/L B-Natriuretic Peptide 87 (<100) pg/mL Total Protein 7.4 (6.5-8.0) g/dL Albumin 4.0 (3.5-5.0) g/dL Lipase 25 (8-78) U/L Urine Color Yellow Urine Appearance Clear Urine pH 7.5 (5.0-9.0) Ur Specific [place] <= 1.005 (1.005-1.025) Urine Protein Negative (Neg-Trace) mg/dL Urine Glucose (UA) Negative (Negative) mg/dL Urine Ketones Negative (Negative) mg/dL Urine Blood Trace H (Negative) Urine Nitrite Negative (Negative) Ur Leukocyte Esterase Negative (Negative) Urine RBC 0-2 (0-2) /HPF Urine WBC 0-5 (0-5) /HPF Ur Squamous Epith Cells 0-2 (0-2) /HPF Urine Bacteria None Seen (None Seen) Hyaline Casts 0-2 (0-2) /LPF Influenza Type A (PCR) NEGATIVE (Negative) Influenza Type B (PCR) NEGATIVE (Negative) RSV RNA Qual (PCR) NEGATIVE (Negative) SARS-CoV-2 RNA (RT-PCR) NEGATIVE (Negative) Independent Interpretation I performed an independent interpretation of an: EKG Interpretation: My interpretation patient's 12 EKG done at 12:54 hours is as follows: Normal sinus rhythm rate of 73, normal UT interval, QRS duration QTC interval, no ST segment elevation, no ST segment depression, inverted T-wave in leads 3 and V1, no PACs, no PVCs. Compared to EKG dated 11/02/2022 there is no significant change. Radiology Impression Discussion of test interpretation with radiology: I have reviewed the radiologist's reading. Radiologist Impression: CT head/brain wo IV con IMPRESSION: No acute intracranial pathology. Dictated By: Adis Prince MD Independent Historian Clinical information obtained from an independent historian. History obtained from or confirmed by: Spouse Discharge Plan Discharge Clinical Impression: Migraine headache, Acute costochondritis, Microcytic anemia Patient Disposition: Home, Self-Care Instructions: Iron Rich Diet (ED), Costochondritis (ED), Iron Deficiency Anemia (ED) Additional Instructions: The CT scan of your head was normal. Your EKG was normal and unchanged from your previous EKG. Your blood work was unremarkable except you have anemia which is most likely consistent with low iron. Your hematocrit was 26.1 % and hematocrit in women is usually 37 to 47%. Take ferrous sulfate 325 mg pills, 1 pill twice a day for 3 months. I want you to follow-up with your doctor in 2 weeks for re-evaluation. Follow-up with your doctor in 2 days. Please return to the emergency department if your symptoms get worse or if you develop any symptoms that are concerning to you. Prescriptions: New ferrous sulfate 325 mg (65 mg iron) tablet 325 mg PO BID 90 Days Qty: 180 0RF No Action ondansetron 4 mg tablet,disintegrating 4 mg PO Q6-8H PRN (Reason: nausea and vomiting) Qty: 7 0RF prednisone 20 mg tablet 20 mg PO BID Qty: 10 0RF azithromycin [Zithromax Z-Samy] 250 mg tablet See Rx Instructions .ROUTE .COMPLEX Qty: 6 0RF Rx Instructions: For 250 mg dose pack: take 500 mg today (day 1), then 250 mg for 4 days (days 2-5) albuterol sulfate 90 mcg/actuation HFA aerosol inhaler 1 inh inhalation QID PRN (Reason: shortness of breath or wheezing) Qty: 8.5 0RF prednisone 50 mg tablet 50 mg PO DAILY 4 Days Qty: 4 0RF naproxen 500 mg tablet 500 mg PO BID PRN (Reason: pain) Qty: 10 0RF cyclobenzaprine 10 mg tablet 10 mg PO Q8H Qty: 10 0RF loperamide [Imodium A-D] 2 mg capsule 2 mg PO Q6H PRN (Reason: loose stool) Qty: 20 0RF Print Language: Azerbaijani
[2023-11-30 14:22] LABS: MANUAL DIFF FLAG NO
[2023-11-30 14:24] LABS: Basophils Absolute Auto 0.1 X10*3/uL (0.0-0.2); Basophils Percent Auto 0.9 % (0-2); Eosinophils Absolute Auto 0.2 X10*3/uL (0.0-0.4); Hematocrit 26.1 % (37.0-47.0); Hemoglobin 7.3 g/dl (12.0-16.0); Imm Gran Abs Auto 0.03 X10*3/uL (0.00-0.03); Imm Gran Pct Auto 0.4 % (0.0-0.4); Lymphocytes Absolute Auto 2.6 X10*3/uL (1.2-4.9); Lymphocytes Percent Auto 35.1 % (20-40); Mean Corpuscular Hemoglobin 17.7 pg (27.0-33.0); Mean Platelet Volume 9.2 fL (9.4-12.3); Monocytes Absolute Auto 0.7 X10*3/uL (0.1-1.2); Monocytes Percent Auto 9.9 % (2-11); Neutrophils Absolute Auto 3.9 x10*3/uL (2.0-8.3); Neutrophils Percent Auto 51.7 % (45-73); Platelet Count 895 X10*3/uL (160-400); Red Blood Count 4.12 X10*6/uL (4.20-5.50); Red Cell Distribution Width 20.2 % (11.0-16.0); White Blood Count 7.5 X10*3/uL (4.8-10.8)
[2023-11-30 14:25] LABS: Mean Corpuscular Volume 63.3 fL (80.0-98.0)
[2023-11-30 14:30] LABS: Prothrombin Time 11.6 SEC (11.1-13.3)
[2023-11-30 14:37] LABS: Alanine Aminotransferase 11 U/L (0-31); Alkaline Phosphatase 56 U/L (39-117); Anion Gap 13 (12-20); Aspartate Amino Transferase 12 U/L (5-31); Bilirubin Total 0.5 mg/dL (0.0-1.0); Blood Urea Nitrogen 7 mg/dL (9-16); Calcium 9.3 mg/dL (8.4-10.2); Carbon Dioxide 24 mmol/L (22-29); Chloride 106 mmol/L (96-108); Creatinine Clr Calc Pharmacy 93.6; Estimated Glomerular Filt Rate > 60; Glucose Random 88 mg/dL (60-115); Lipase 25 U/L (8-78); Potassium 3.7 mmol/L (3.3-5.1); Sodium 139 mmol/L (135-145); Total Protein 7.4 g/dL (6.5-8.0)
[2023-11-30 14:44] LABS: B Type Natriuretic Peptide 87 pg/mL (<100)
[2023-11-30 14:47] LABS: Troponin-I High Sensitivity < 2.7 ng/L (<3.5-17.0)
[2023-11-30 15:31] LABS: Influenza A PCR NEGATIVE (Negative); Influenza B PCR NEGATIVE (Negative); Resp Syncy Virus RNA Qual PCR NEGATIVE (Negative); SARS COV2 PCR INHOUSE NEGATIVE (Negative)
[2023-11-30 17:51] VITALS: BP 116/71; PULSE 82; RESP 18; TEMP 36.1; O2SAT 100
[2023-11-30 20:01] VITALS: BP 135/78; PULSE 72; RESP 19; O2SAT 96
[2023-11-30 20:13] VITALS: BP 115/74; PULSE 71; RESP 18; TEMP 36.7; O2SAT 100
[2023-11-30 20:43] LABS: Appearance Urine Clear; Color Urine Yellow; Glucose Urine UA Negative (Negative); Leukocyte Esterase Urine Negative (Negative); Nitrite Urine Negative (Negative); PH 7.5 (5.0-9.0); Specific Gravity - Urine <= 1.005 (1.005-1.025); UMIC TRIGGER UACC YES; Urine Blood Trace (Negative); Urine Ketones Negative (Negative); Urine Protein Negative (Neg-Trace)
[2023-11-30 20:45] LABS: Bacteria Urine None Seen (None Seen); Hyaline Casts Urine 0-2 /LPF (0-2); RBC Urine 0-2 /HPF (0-2); Squamous Epithelial Cell Urine 0-2 /HPF (0-2); WBC Urine 0-5 /HPF (0-5)
--- NOTE | 2023-11-30 21:08 | PC.NURSE ---
PT REPORTS CHEST TIGHTNESS SOB HAVE RESOLVED SINCE ARRIVAL TO ED. CURRENTLY C/O HEADACHE, PRESSURE BEHIND HER L EYE, STATES THIS FEELS SIMILAR TO MIGRAINES SHE TYPICALLY EXPERIENCES, TOOK EXCEDRIN IN WAITING ROOM WITH NO EFFECT. CT HEAD NEG SO FAR, NO FACIAL PARALYSIS OBSERVED, AWAITING ED PROVIDER.
[2023-11-30 23:00] VITALS: BP 129/64; PULSE 68; RESP 22; O2SAT 100
[2023-11-30] MEDS: diphenhydrAMINE HCL 50 MG/ML VIAL IVPUSH (23:48)
[2023-11-30] MEDS: Ketorolac Tromethamine 15 MG/ML VIAL IVPUSH (23:49)
[2023-11-30] MEDS: Metoclopramide HCl 10 MG/2 ML VIAL IVPUSH (23:49)
[2023-12-01 00:03] LABS: Iron 14 mcg/dL (30-160); Percent Iron Saturation 4 % (15-50); Total Iron Binding Capacity 358 mcg/dL (228-428); Unsaturated Iron Binding 344 ug/dL
[2023-12-01 01:30] VITALS: BP 108/63; PULSE 70; RESP 16; TEMP 36.8; O2SAT 97
== END 2023-12-01 01:30 | disposition home or self-care (01) ==
PROVIDERS: Physician Assistant; Emergency Provider Emergency Medicine Emergency Medical Services
DX: G43.909 Migraine, unspecified, not intractable, without status migrainosus (principal); M94.0 Chondrocostal junction syndrome [Tietze]; D50.9 Iron deficiency anemia, unspecified; Z03.818 Encounter for observation for suspected exposure to other biological agents ruled out; R06.02 Shortness of breath
CPT/HCPCS: 0241U; 36415; 70450; 71046; 80053; 81001; 83540; 83690; 83880; 84484; 85025; 85610; 93005; 96374; 96375; 99284; 99285; J1200; J1885; J2765

== ENCOUNTER → 2023-11-30 12:39 | Outpatient (BNV) | payer SELFPAY | PROVIDERS: Visit Provider Internal Medicine | DX: R06.02 Shortness of breath (principal); R07.9 Chest pain, unspecified | CPT/HCPCS: 93010 ==